=== PATIENT | female | born 1960 | race Caucasian/White ===

== ENCOUNTER 2018-05-14 11:00 | Inpatient (IN) ==
[2018-05-14] MEDS ORDERED: Naloxone 0.4 MG/ML INJ IVP PRN ×2 (13:09→16:05)
[2018-05-14] MEDS ORDERED: OXYCODONE Oral CONC 10 MG/0.5 ML ORAL.SYG SL PRN (13:09)
[2018-05-14] MEDS ORDERED: 0.9 % Sodium Chloride 1,000 ML IVC SCH (13:15)
--- NOTE | 2018-05-14 13:16 | Internal Med History&Physical ---
Date of Encounter: 05/14/18 Time of Encounter: 13:13 Internal Medicine - H&P: HPI Chief complaint: back pain Admitted From: Hospital to Hospital Transfer Plans for Post Hospital Care: Home History of present illness: Ms. Marte is a 57 year old female with history of hypothyroidism and multiple urinary tract infections presented to the emergency department with complaint of back pain and pain on urination. As per patient for the past 2 days she developed pain while urinating and has experienced incomplete emptying resulting in urinary frequency. Her symptoms progressively worsened and on the day of admission she developed back pain so she decided to come to the emergency department for further evaluation. While at [place] emergency department UA was positive, CT abdomen and pelvis was performed which showed there is a 6 mm calculus near the distal right ureter just proximal to the UVJ with mild hydroureter. Urology was consulted and recommended her to be transferred to [facility] for possible stent placement. Currently the patient denies any fever, chills, nausea, vomiting, diarrhea. Has had no chest pain or shortness of breath. She is able to walk about a mile without having to stop for chest pain or shortness of breath. No previous heart disease. Pain is minimally relieved with pain medications that she received at [facility] and she is currently requesting pain medications. Past Med Surg Social Fam HX - Past Medical History Medical history: migraine, thyroid disease, other Additional medical history: Neuropathy Psychiatric history: no psych history - Past Surgical History Surgical History: , knee replacement (Bilateral), thyroidectomy, other (Gastric band placement and removal) Additional surgical history: gastric band placed and removed. bilat knee replac ed - Social History Smoking Status: Never smoker Smokeless Tobacco Status: No Alcohol use: none Drug use: none - Family History Mother Hx Family Genitourinary Disorders: Yes (Kidney stone) Internal Medicine - H&P: Meds Levothyroxine [Synthroid] 150 mcg PO DAILY 05/10/15 [History] Topiramate [Topiramate ER] 250 mg PO DAILY 05/10/15 [History] Armodafinil [Nuvigil] 250 mg PO DAILY 05/24/15 [History] Gabapentin [Neurontin] 600 mg PO BID 02/24/18 [History] OXcarbazepine [Oxcarbazepine] 300 mg PO BID #14 tablet 12/01/18 [Rx] Allergy/AdvReac Type Severity Reaction Status Date / Time Amoxicillin [From Augmentin] AdvReac Rash Verified 02/24/18 20:14 clavulanic acid AdvReac Rash Verified 02/24/18 20:14 [From Augmentin] All Systems PM: A 10-system review of systems was performed and is negative for pertinent findings except as documented above in the HPI. - Constitutional Vitals: Temp Pulse Resp BP Pulse Ox 97.7 F 70 20 147/85 98 05/14/18 13:11 05/14/18 13:11 05/14/18 13:11 05/14/18 13:11 05/14/18 13:11 Exam: General: Patient is alert, oriented, no acute distress, obese Head: atraumatic, normocephalic, Eye: normal appearance, PERRL, no scleral icterus, no conjunctival injection ENT: mucous membranes moist, normal external ear exam Neck: normal inspection, trachea midline, full ROM, no carotid bruits Chest: normal inspection, symmetric chest rise Respiratory: Good respiratory effort. Bilateral breath sounds are clear without wheezing, crackles, or rhonchi. Cardiovascular: Regular rate and rhythm. s1 and s2 No clicks, rubs, gallops, or murmors. Abdomen: Bowel sounds present normoactive x-4 quadrants. Abdomen is soft, nondistended. no Epigastric tenderness. No guarding or rebound. No organomegaly noted, obese, CVA tenderness on the right musculoskeletal: Spontaneously moving all extremities. no edema, no calf tenderness Skin: warm, dry, intact. Neuro: Alert and oriented x4. No focal deficit Psych: Patient's affect is normal Internal Med - H&P Results - EKG Data -: EKG Interpreted by Myself (Admission EKG is pending.) - Assessment and plan (1) Complicated urinary tract infection Current Visit: Yes Status: Acute Assessment and plan: complicated urinary tract infection, CT abdomen and pelvis with 6 mm calculus near the distal right ureter with mild hydronephrosis Urology was consulted at [facility] recommended her to be transferred to [facility] for further evaluation Nothing by mouth for possible OR Continuous ceftriaxone Normal saline at 100 mL per hour watch for overload Follow urine cultures We will follow urology recommendations (2) Nephrolithiasis Current Visit: Yes Status: Acute Assessment and plan: Urology was consulted Nothing by mouth for possible procedure We will follow urology recommendations Ct A/P IMPRESSION: 1. There is a 6 mm calculus near the distal right ureter just proximal to the UVJ with mild hydroureter. 2. Minimal pericolonic inflammatory changes are nonspecific; mild colitis not excluded. (3) Hydronephrosis Current Visit: Yes Status: Acute Assessment and plan: Mild right-sided hydronephrosis secondary to above Management as above Qualifiers: Hydronephrosis type: with ureteropelvic junction obstruction Qualified Code(s): Q62.11 - Congenital occlusion of ureteropelvic junction (4) Hypothyroidism Current Visit: Yes Status: Acute Assessment and plan: Continue home Synthroid TSH in the a.m. Qualifiers: Hypothyroidism type: acquired Qualified Code(s): E03.9 - Hypothyroidism, unspecified (5) Migraines Current Visit: Yes Status: Acute Assessment and plan: Continue with home medications if not contraindicated Qualifiers: Migraine type: unspecified Status migrainosus presence: without status migrainosus Qualified Code(s): G43.919 - Migraine, unspecified, intractable, without status migrainosus (6) Obesity Current Visit: Yes Status: Acute Assessment and plan: nutrition consult Qualifiers: Obesity type: due to excess calories Serious obesity comorbidity presence: without serious comorbidity Body mass index: BMI 45.0-49.9 Qualified Code(s): E66.01 - Morbid (severe) obesity due to excess calories; Z68.42 - Body mass index (BMI) 45.0-49.9, adult (7) LES (obstructive sleep apnea) Current Visit: Yes Status: Acute Assessment and plan: CPAP at nights (8) DVT prophylaxis Current Visit: Yes Status: Acute Assessment and plan: Heparin subcutaneous - Time Spent With Patient Total time spent is greater than 50% in coordination of care (as documented) at patient's floor/unit and/or counseling patient:
--- NOTE | 2018-05-14 13:17 | Urology - Consult Note ---
Date of Encounter: 05/14/18 Time of Encounter: 13:15 - Assessment and Plan (1) Nephrolithiasis Current Visit: Yes Status: Acute Assessment and plan: 57-year-old woman with a distal right ureteral stone. Plan: We discussed options today. Given her pain and nausea, she would like to have her stone treated. I recommend proceeding with a right ureteroscopic stone extraction using laser lithotripsy and a stent placement. She was informed of the risks of the procedure including but not limited to bleeding, infection, injury to other structures, need for further procedures, stent irritation, incomplete fragmentation, ureteral perforation, need for nephrostomy tube, need for open repair, risks unforeseen, and the risk of anesthesia. She is willing to proceed. She has been NPO. She received a dose of Ceftriaxone this morning. (2) Renal colic Current Visit: No Status: Acute Urology CN:HPI Consult date: 05/14/18 Reason for consult Urology: Other (Right ureteral stone) Requesting physician: Treasure Gandara History of present illness: 57-year-old woman presents with a three-day history of right flank pain. The pain became more severe today. It is sharp. It radiates from the right flank to the right groin. The pain has not improved. She came to the [place] emergency department. She was given some pain medication. A CT scan was obtained which showed a right 6 mm distal ureteral stone. She was transferred to [facility] for further care. She reports having a history of stones. She was previously treated for one about 3-4 years ago in [place]. She is having some nausea. She denies any emesis. She denies any fevers or chills. Past Med Surg Social Fam HX - Past Medical History Medical history: migraine, thyroid disease, other Additional medical history: Neuropathy Psychiatric history: no psych history - Past Surgical History Surgical History: , knee replacement (Bilateral), thyroidectomy, other (Gastric band placement and removal) Additional surgical history: gastric band placed and removed. 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 - Family History Mother Hx Family Genitourinary Disorders: Yes (Kidney stone) Medications and Allergies Levothyroxine [Synthroid] 150 mcg PO DAILY 05/10/15 [History] Topiramate [Topiramate ER] 250 mg PO DAILY 05/10/15 [History] Armodafinil [Nuvigil] 250 mg PO DAILY 05/24/15 [History] Gabapentin [Neurontin] 600 mg PO BID 02/24/18 [History] OXcarbazepine [Oxcarbazepine] 300 mg PO BID #14 tablet 02/24/18 [Rx] Allergy/AdvReac Type Severity Reaction Status Date / Time Amoxicillin [From Augmentin] AdvReac Rash Verified 02/24/18 20:14 clavulanic acid AdvReac Rash Verified 02/24/18 20:14 [From Augmentin] Review of Systems - Constitutional no chills, no fever(s) - EENT Nose, mouth and throat: no dizziness - Cardiovascular no chest pain - Respiratory no dyspnea - Gastrointestinal nausea, no vomiting - Genitourinary Genitourinary: flank pain, no hematuria - Musculoskeletal no back pain - Integumentary no erythema, no rash - Neurological no weakness - Psychiatric no suicidal ideation - Hematologic/Lymphatic no easy bleeding - Allergic/Immunologic no wheezing Exam Initial Vital Signs Temp Pulse Resp BP Pulse Ox 97.7 F 70 20 147/85 98 05/14/18 13:11 05/14/18 13:11 05/14/18 13:11 05/14/18 13:11 05/14/18 13:11 - General physical appearance Present: well developed, well nourished, no distress - Eyes Absent: icteric - ENT Present: normal nares - Neck Present: trachea midline - Respiratory Present: normal respiratory effort - Cardiovascular Cardiovascular exam IM: RRR - Abdomen Abdomen: Present: soft, tender (Right lower quadrant) - Integumentary Present: no rash - Neurologic Present: normal coordination - Musculoskeletal Present: normal gait Urology Results - Labs All other labs normal. - Imaging CT scan - abdomen: report reviewed, image reviewed CT scan - pelvis: report reviewed, image reviewed Consult Discharge Plan - Plan Referrals: Mansi Reagan, ENVIRONMENTAL SERVICES ASSOCIATE [Primary Care Provider] -
[2018-05-14] MEDS ORDERED: *HR* Propofol 200 MG/20 ML VIAL IVP ONE (13:23)
[2018-05-14] MEDS ORDERED: Dexamethasone 4 MG/ML VIAL ONE (13:23)
[2018-05-14] MEDS ORDERED: *HR* Midazolam HCl 2 MG/2 ML VIAL ONE (13:23)
[2018-05-14] MEDS ORDERED: Lidocaine -MPF 2% 2 ML VIAL ONE (13:23)
[2018-05-14] MEDS ORDERED: *HR* FentaNYL (PF) 100 MCG/2 ML VIAL ONE (13:23)
[2018-05-14] MEDS ORDERED: Ondansetron 4 MG/2 ML VIAL ONE (13:23)
--- NOTE | 2018-05-14 13:41 | Anesthesia Evaluation PreOp ---
Date of Encounter: 05/14/18 Time of Encounter: 13:49 - Past History Planned Operation: R USE Cardiac History: Denies any Significant Hx Pulmonary History: LES Dx (unsure of settings but is compliant) CORPORATE SCHEDULER History: Other (migraine) Other Medical History: Renal (nephrolithiasis), Thyroid (hypo), Other (obesity) Anesthesia History: Past Anesthesia (, knee replacement (Bilateral), thyroidectomy, Gastric band placement and removal), Problems (PONV) Alcohol Use: none Drug use: none Medications and Allergies Levothyroxine [Synthroid] 150 mcg PO DAILY 05/10/15 [History] Topiramate [Topiramate ER] 250 mg PO DAILY 05/10/15 [History] Armodafinil [Nuvigil] 250 mg PO DAILY 05/24/15 [History] Gabapentin [Neurontin] 600 mg PO BID 02/24/18 [History] OXcarbazepine [Oxcarbazepine] 300 mg PO BID #14 tablet 02/24/18 [Rx] Allergy/AdvReac Type Severity Reaction Status Date / Time Amoxicillin [From Augmentin] AdvReac Rash Verified 02/24/18 20:14 clavulanic acid AdvReac Rash Verified 02/24/18 20:14 [From Augmentin] - Meds/Allergy Pre-op Review Medications Reviewed: Yes Allergies Reviewed: Yes Beta Blockers on Current Med List: No Anesthesia Results - Labs Laboratory Tests 05/14/18 05/14/18 08:12 08:12 WBC 6.6 Hgb 13.8 Hct 42.7 Plt Count 257 Sodium 141 Potassium 4.2 Chloride 109 H Carbon Dioxide 23 BUN 15 Creatinine 0.76 Est GFR (Non-Af Amer) > 60 - Imaging EKG: report reviewed Anesthesia Exam Vital Signs/O2 Sat/Glucose, Most Recent Temp Pulse Resp BP Pulse Ox 97.7 F 70 20 147/85 98 05/14/18 13:11 05/14/18 13:11 05/14/18 13:11 05/14/18 13:11 05/14/18 13:11 Weight: 260 lbs NPO (# of Hours): > 8 hr - HEENT Pupil (Motor): Pupils equal Mallampati: III Teeth: Normal Oral Opening: Greater than 3 - CORPORATE SCHEDULER LOC: Oriented CORPORATE SCHEDULER Motor: Normal RUE, Normal LUE, Normal RLE, Normal LLE, Normal Face CORPORATE SCHEDULER Sensory: Normal: RUE, LUE, RLE, LLE, Face - Cardiac Rhythm: Regular Murmur: None - Pulmonary Breath Sounds: bilateral Clear Anesthesia Assess/Plan ASA Score: 3 Level of consciousness: Cooperative, Oriented Anesthetic Plan: General Monitoring Plan: Standard Monitors Recovery Plan: PACU
[2018-05-14] MEDS ORDERED: Ondansetron 4 MG/2 ML VIAL IVP ONE (13:51)
[2018-05-14] MEDS ORDERED: *HR* Promethazine 25 MG/ML VIAL IVP PRN (13:51)
[2018-05-14] MEDS ORDERED: *HR* OxyCODONE Immed Rel 5 MG TABLET PO PRN (13:51)
[2018-05-14] MEDS ORDERED: *HR* HYDROmorphone (PF) 1 MG/ML SYRINGE IVP PRN (13:51)
[2018-05-14] MEDS ORDERED: Scopolamine Patch 1.5 MG PATCH.TD72 ONE (13:55)
[2018-05-14] MEDS ORDERED: Propofol 500 MG/50 ML INFUS..BTL ONE (13:59)
[2018-05-14] MEDS ORDERED: *HR* Heparin 5,000 UNIT/ML VIAL SQ SCH (14:00)
[2018-05-14] MEDS ORDERED: *HR* Succinylcholine 200 MG/10 ML VIAL IVP ONE (14:22)
[2018-05-14 14:28] LABS: INR 1.1; Prothrombin Time 12.6 Seconds (9.4-12.1)
[2018-05-14 14:31] LABS: Activated Partial Thrombo Time 30.1 Seconds (26.0-36.0)
--- NOTE | 2018-05-14 14:43 | Operative Note ---
Date of procedure: 05/14/18 Pre-op diagnosis: Right ureteral stone Post-op diagnosis: same Procedure: Right ureteroscopic stone extraction, laser lithotripsy, basket stone extraction, and stent placement Implants: 4.8-Wallisian by 24 cm double-J stent Complications: None Anesthesia: GETA Surgeon: French Ford Was there an lab assistant present: No Estimated blood loss (cc): 1 Specimen: right ureteral stone Condition: stable Disposition: PACU Procedure in Detail: Indications: Sol is a 57-year-old female who presents with right flank pain. A CT scan showed a 5 mm distal right ureteral stone. She failed outpatient management and elected to have the stone removed. She elected to undergo a right ureteroscopy, laser lithotripsy, and stent placement. She was aware of the risks of the procedure including but not limited to bleeding, infection, injury to other structures, need for further procedures, need for stent, stent irritation, incomplete treatment, and the risk of anesthesia. She is willing to proceed. Procedure: After informed consent was obtained the patient was brought back to the operating room and placed in supine position. A time out was performed. General anesthesia was administered and an LMA was placed. She was then placed in the lithotomy position. She was prepped and draped in the usual sterile fashion. Cystoscopy was performed. The anterior urethra was normal. There was no evidence of bladder tumors. The ureteral orifices were in the normal orthotopic position. There was no duplication of the ureteral orifices. The zip wire was placed in the right ureteral orifice, and it was brought into the kidney under fluoroscopic guidance. I then advanced the semirigid ureteroscope into the ureter. The stone was fragmented using the 365 aneta fiber. The stone fragments were then basket extracted. A 4.8 Wallisian by 24cm JJ stent was then placed with good curl seen in the kidney and the bladder. The dangle string was left intact and tucked into the vagina for removal later. The bladder was drained. The patient was then awakened from general anesthesia and brought to recovery room in good condition. All sponge, needle, and instrument counts were correct
[2018-05-14] MEDS ORDERED: Ketorolac 15 MG/ML VIAL IVP ONE (16:28)
[2018-05-14] MEDS: *HR* Promethazine 25 MG/ML VIAL IVP PRN (17:04)
[2018-05-14] MEDS: 0.9 % Sodium Chloride 1,000 ML IVC SCH (17:13)
[2018-05-14] MEDS: OXYCODONE Oral CONC 10 MG/0.5 ML ORAL.SYG SL PRN (20:38)
[2018-05-14] MEDS: *HR* Heparin 5,000 UNIT/ML VIAL SQ SCH (21:39)
[2018-05-14] MEDS: Ondansetron 4 MG/2 ML VIAL IVP PRN (22:35)
[2018-05-15] MEDS: *HR* Promethazine 25 MG/ML VIAL IVP PRN (02:53)
[2018-05-15] MEDS: OXYCODONE Oral CONC 10 MG/0.5 ML ORAL.SYG SL PRN ×3 (02:53→20:06)
[2018-05-15] MEDS: 0.9 % Sodium Chloride 1,000 ML IVC SCH (04:54)
[2018-05-15] MEDS: *HR* Heparin 5,000 UNIT/ML VIAL SQ SCH ×3 (05:14→22:41)
[2018-05-15 06:43] LABS: Basophils % 0.3 %; Eosinophils % 0.1 %; Hematocrit 40.7 % (35.3-44.9); Hemoglobin 12.8 g/dL (11.5-15.4); Immature Granulocytes % 0.3 % (0-4); Lymphocytes # 1.5 K/mcL (0.6-4.6); Lymphocytes % 20.1 %; Mean Corpuscular HGB Conc 31.4 g/dL (31.6-35.5); Mean Corpuscular Hemoglobin 31.8 pg (28.0-33.3); Mean Platelet Volume 8.9 fL (9.4-12.4); Monocytes # 0.5 K/mcL (0.0-1.3); Monocytes % 6.8 %; Neutrophils # 5.5 K/mcL (1.6-8.9); Platelet Count 239 K/mcL (140-400); Red Blood Count 4.03 M/mcL (3.82-4.97); Red Cell Distribution Width 13.7 % (11.5-14.5); Segmented Neutrophils % 72.4 %
[2018-05-15 06:51] LABS: BUN/Creatinine Ratio 23 (6-26); Blood Urea Nitrogen 15 mg/dL (6-20); Calcium 8.8 mg/dL (8.6-10.3); Carbon Dioxide 24 mEq/L (23-29); Chloride 110 mEq/L (98-107); Glucose 130 mg/dL (70-105); Osmolality,Calculated 293 (280-300); Potassium 4.2 mEq/L (3.5-5.1); Sodium 140 mEq/L (136-145); eGFR For Non-African Americans > 60 (> 60)
--- NOTE | 2018-05-15 08:36 | Urology Progress Note ---
Addendum entered and electronically signed by French Ford MD 05/15/18 09:26: Patient seen and examined with the PA. She is still having some discomfort after surgery. It is likely related to the stent. I would like her to keep the stent in place until 05/17/2018. Okay to discharge home today if pain control is improved. Appreciate IM support. Original Note: Date of Encounter: 05/15/18 Time of Encounter: 08:00 - Assessment and Plan (1) Nephrolithiasis Current Visit: Yes Status: Acute Assessment and plan: Patient is a 57-year-old female who presents one day status post right ureteroscopic stone extraction, laser lithotripsy, basket stone extraction, and stent placement. Vital signs are currently stable and afebrile. White blood cell count, hemoglobin, and renal function are stable and reassuring. Patient is experiencing some pain control issues. I explained postoperative discharge goals for patient include tolerating normal diet without nausea or vomiting, ind icating without assistance, and pain being well controlled with oral pain medication. Encouraged patient to ambulate and sit up in the chair and discussed postoperative expectations with indwelling ureteral stent. (2) Renal colic Current Visit: Yes Status: Acute Progress Note Subjective: no new complaints Narrative: Postoperative day #1. Patient seen and examined sitting upright in bed in no apparent distress. Patient is complaining of moderate flank pain and nausea. Patient is tolerating normal diet without emesis. Patient is voiding without difficulty. Patient is experiencing some pain control issues and does not wish to ambulate. Objective Initial Vital Signs Temp Pulse Resp BP Pulse Ox 97.7 F 70 20 147/85 98 05/14/18 13:11 05/14/18 13:11 05/14/18 13:11 05/14/18 13:11 05/14/18 13:11 - General physical appearance Present: no distress, moderate pain, obese - Respiratory Present: normal expansion, normal respiratory effort - Abdomen Present: soft, tender (right CVAT and RLQ discomfort) - Integumentary Present: no rash, no abnormal pigmentation - Musculoskeletal Present: normal posture - Psychiatric Present: oriented to time, oriented to person, oriented to place, speech is normal, memory intact - Labs 05/15/18 05:56 05/15/18 05:56 Diabetes panel 05/15/18 Range/Units 05:56 Sodium 140 (136-145) mEq/L Potassium 4.2 (3.5-5.1) mEq/L Chloride 110 H (98-107) mEq/L Carbon Dioxide 24 (23-29) mEq/L BUN 15 (6-20) mg/dL Creatinine 0.64 (0.60-1.20) mg/dL Glucose 130 H (70-105) mg/dL Calcium 8.8 (8.6-10.3) mg/dL Calcium panel 05/15/18 Range/Units 05:56 Calcium 8.8 (8.6-10.3) mg/dL Pituitary panel 05/15/18 Range/Units 05:56 Sodium 140 (136-145) mEq/L Potassium 4.2 (3.5-5.1) mEq/L Chloride 110 H (98-107) mEq/L Carbon Dioxide 24 (23-29) mEq/L BUN 15 (6-20) mg/dL Creatinine 0.64 (0.60-1.20) mg/dL Glucose 130 H (70-105) mg/dL Calcium 8.8 (8.6-10.3) mg/dL Adrenal panel 05/15/18 Range/Units 05:56 Sodium 140 (136-145) mEq/L Potassium 4.2 (3.5-5.1) mEq/L Chloride 110 H (98-107) mEq/L Carbon Dioxide 24 (23-29) mEq/L BUN 15 (6-20) mg/dL Creatinine 0.64 (0.60-1.20) mg/dL Glucose 130 H (70-105) mg/dL Calcium 8.8 (8.6-10.3) mg/dL Consult Discharge Plan - Plan Referrals: Mansi Reagan, TRANSIT MIX OPERATOR [Primary Care Provider] -
[2018-05-15] MEDS: Ondansetron 4 MG/2 ML VIAL IVP PRN (09:12)
[2018-05-15] MEDS ORDERED: cefTRIAXone 2,000 MG in Water for inj. (sterile) 20 ML 20 ML IVP SCH (11:00)
[2018-05-15] MEDS: cefTRIAXone 2,000 MG in Water for inj. (sterile) 20 ML 20 ML IVP SCH (12:27)
[2018-05-16] MEDS: OXYCODONE Oral CONC 10 MG/0.5 ML ORAL.SYG SL PRN ×4 (00:23→17:04)
[2018-05-16] MEDS: Acetaminophen 325 MG TABLET PO PRN ×2 (04:01→16:41)
--- NOTE | 2018-05-16 04:40 | Internal Med Progress Note ---
Hospitalist Progress Note - Encounter Date of Encounter: 05/15/18 Time of Encounter: 19:00 - Subjective Interval History: SUBJECTIVE: The patient complains of lower abdominal pain. She does have some nausea but not vomiting. She had a right ureteroscopic stone extraction with laser lithotripsy, basket stone extraction and stent placement done yesterday. Denies chest pain and difficulty breathing. She makes good amounts of urine. OBJECTIVE: Skin: Free of rash and discoloration. ENMT: Oral/pharyngeal mucosa is normal in appearance. Eyes: Sclera is white. There is no discharge from eyes. Respiratory: Normal breath sounds; no crackles or wheezes. CV: Heart is regular; no gallop or murmur. GI: There is mild tenderness on palpation of the suprapubic area. There is no palpable mass or visceromegaly. Neuro: There is no focal deficits. ADDITIONAL DATA: Blood work from yesterday showed normal CBC and BMP. ASSESSMENT AND PLAN: UTI. Triggered by a stone in the right ureter. Right-sided mild hyd ronephrosis. Nephrolithiasis. xxx. The stone has been removed by urology. She is on IV Rocephin. She gets when necessary IV Zofran. Hypothyroidism. Clinically under control. To continue Synthroid. Obstructive sleep apnea. To continue CPAP treatments. She is on Nuvigil. Migraine headaches. She gets Topamax and oxcarbazepine for prevention. DISPOSITION: We need to wait for urine culture results before discharging this patient. We will start physical therapy for ambulation. - Exam Vitals: Temp Pulse Resp BP Pulse Ox 98.1 F 64 20 127/77 93 05/16/18 04:08 05/16/18 04:08 05/16/18 04:08 05/16/18 04:08 05/16/18 04:08 Exam: xx - Assessment and Plan (1) Complicated urinary tract infection Current Visit: Yes Status: Acute (2) Hydronephrosis Current Visit: Yes Status: Acute (3) Nephrolithiasis Current Visit: Yes Status: Chronic (4) Hypothyroidism Current Visit: Yes Status: Acute (5) LES (obstructive sleep apnea) Current Visit: Yes Status: Acute (6) Migraines Current Visit: Yes Status: Acute (7) Obesity Current Visit: Yes Status: Acute - Time Spent with Patient Total time spent is greater than 50% in coordination of care (as documented) at patient's floor/unit and/or counseling patient: Internal Medicine: Result - Labs CBC & Chem 7: 05/15/18 05:56 05/15/18 05:56 Labs: Short CBC 05/15/18 Range/Units 05:56 WBC 7.6 (4.3-11.1) K/mcL Hgb 12.8 (11.5-15.4) g/dL Hct 40.7 (35.3-44.9) % Plt Count 239 (140-400) K/mcL Neutrophils # 5.5 (1.6-8.9) K/mcL BMP 05/15/18 05:56 Sodium 140 Potassium 4.2 Chloride 110 H Carbon Dioxide 24 BUN 15 Creatinine 0.64 Glucose 130 H Calcium 8.8 - ABG Interpretation ABG results: PT/INR, D-dimer PT 12.6 Seconds (9.4-12.1) H 05/14/18 13:45 Consult Discharge Plan - Plan Referrals: Mansi Reagan, FREELANCE TRANSLATOR [Primary Care Provider] - (2) Hydronephrosis Qualifiers: Hydronephrosis type: with ureteral calculous obstruction Qualified Code(s): N13.2 - Hydronephrosis with renal and ureteral calculous obstruction (4) Hypothyroidism Qualifiers: Hypothyroidism type: acquired Qualified Code(s): E03.9 - Hypothyroidism, unspecified (6) Migraines Qualifiers: Migraine type: unspecified Status migrainosus presence: without status migrainosus Qualified Code(s): G43.919 - Migraine, unspecified, intractable, without status migrainosus (7) Obesity Qualifiers: Obesity type: due to excess calories Serious obesity comorbidity presence: without serious comorbidity Body mass index: BMI 45.0-49.9 Qualified Code(s): E66.01 - Morbid (severe) obesity due to excess calories; Z68.42 - Body mass index (BMI) 45.0-49.9, adult
[2018-05-16] MEDS: *HR* Heparin 5,000 UNIT/ML VIAL SQ SCH ×3 (05:26→20:52)
[2018-05-16 06:25] LABS: Basophils % 0.5 %; Eosinophils # 0.1 K/mcL (0.0-0.6); Eosinophils % 2.1 %; Hematocrit 38.2 % (35.3-44.9); Hemoglobin 12.3 g/dL (11.5-15.4); Immature Granulocytes % 0.2 % (0-4); Lymphocytes # 1.9 K/mcL (0.6-4.6); Lymphocytes % 28.8 %; Mean Corpuscular HGB Conc 32.2 g/dL (31.6-35.5); Mean Corpuscular Hemoglobin 31.7 pg (28.0-33.3); Mean Corpuscular Volume 98.5 fL (83.0-100.0); Mean Platelet Volume 9.6 fL (9.4-12.4); Monocytes # 0.5 K/mcL (0.0-1.3); Monocytes % 8.3 %; Neutrophils # 3.9 K/mcL (1.6-8.9); Platelet Count 182 K/mcL (140-400); Red Blood Count 3.88 M/mcL (3.82-4.97); Red Cell Distribution Width 13.5 % (11.5-14.5); Segmented Neutrophils % 60.1 %
[2018-05-16 06:40] LABS: BUN/Creatinine Ratio 22 (6-26); Blood Urea Nitrogen 14 mg/dL (6-20); Calcium 9.1 mg/dL (8.6-10.3); Carbon Dioxide 24 mEq/L (23-29); Chloride 109 mEq/L (98-107); Glucose 116 mg/dL (70-105); Osmolality,Calculated 293 (280-300); Potassium 4.1 mEq/L (3.5-5.1); Sodium 141 mEq/L (136-145); eGFR For Non-African Americans > 60 (> 60)
--- NOTE | 2018-05-16 08:35 | Urology Progress Note ---
Addendum entered and electronically signed by French Ford MD 05/16/18 16:10: The patient was seen and examined with the physician's assistant front desk manager. I agree with the assessment and plan. The patient is postoperative day #2 status post right ureteroscopic stone extraction. Urine culture is still pending. She is still having some lower abdominal pain and nausea. This may be related to the stent. We will keep the stent indwelling today. Anticipate removal of it tomorrow morning. Urology will follow along. Original Note: Date of Encounter: 05/16/18 Time of Encounter: 08:05 - Assessment and Plan (1) Nephrolithiasis Current Visit: Yes Status: Chronic Assessment and plan: Patient is a 57-year-old female who presents 2 days status post right ureteroscopic stone extraction, laser lithotripsy, basket stone extraction, and stent placement. Vital signs are currently stable and afebrile. White blood cell count and renal function remain normal and reassuring. Patient is expe riencing continued pain control issues and is reluctant to increase ambulation. We will consider removal of ureteral stent earlier than anticipated due to patient's discomfort. (2) Renal colic Current Visit: Yes Status: Acute Progress Note Subjective: no new complaints, feels better Narrative: POD #2. Patient seen and examined sitting upright in bed eating breakfast in no apparent distress. Patient reports continued right flank pain that is worse with movement and worse with urination. Patient does not feel her pain will be well-controlled at home. Patient states she is voiding without difficulty, and she denies any fever, chills, chest pain, dyspnea. Objective Initial Vital Signs Temp Pulse Resp BP Pulse Ox 97.7 F 70 20 147/85 98 05/14/18 13:11 05/14/18 13:11 05/14/18 13:11 05/14/18 13:11 05/14/18 13:11 - General physical appearance Present: no distress, moderate pain, obese - Respiratory Present: normal expansion, normal respiratory effort - Abdomen Present: soft, tender (RLQ) - Integumentary Present: no rash, no abnormal pigmentation - Musculoskeletal Present: normal posture - Psychiatric Present: oriented to time, oriented to person, oriented to place, speech is normal, memory intact - Labs 05/16/18 06:07 05/16/18 06:07 Diabetes panel 05/16/18 Range/Units 06:07 Sodium 141 (136-145) mEq/L Potassium 4.1 (3.5-5.1) mEq/L Chloride 109 H (98-107) mEq/L Carbon Dioxide 24 (23-29) mEq/L BUN 14 (6-20) mg/dL Creatinine 0.63 (0.60-1.20) mg/dL Glucose 116 H (70-105) mg/dL Calcium 9.1 (8.6-10.3) mg/dL Calcium panel 05/16/18 Range/Units 06:07 Calcium 9.1 (8.6-10.3) mg/dL Pituitary panel 05/16/18 Range/Units 06:07 Sodium 141 (136-145) mEq/L Potassium 4.1 (3.5-5.1) mEq/L Chloride 109 H (98-107) mEq/L Carbon Dioxide 24 (23-29) mEq/L BUN 14 (6-20) mg/dL Creatinine 0.63 (0.60-1.20) mg/dL Glucose 116 H (70-105) mg/dL Calcium 9.1 (8.6-10.3) mg/dL Adrenal panel 05/16/18 Range/Units 06:07 Sodium 141 (136-145) mEq/L Potassium 4.1 (3.5-5.1) mEq/L Chloride 109 H (98-107) mEq/L Carbon Dioxide 24 (23-29) mEq/L BUN 14 (6-20) mg/dL Creatinine 0.63 (0.60-1.20) mg/dL Glucose 116 H (70-105) mg/dL Calcium 9.1 (8.6-10.3) mg/dL Consult Discharge Plan - Plan Referrals: Mansi Reagan, BOX BUILDER [Primary Care Provider] -
[2018-05-16 09:22] LABS: Bilirubin,Urine Negative (Negative); Blood,Urine Large (Negative); Clarity,Urine Cloudy (Clear); Color,Urine Dark Yellow (Yellow); Glucose,Urine (UA) Normal (Normal); Ketones,Urine Negative (Negative); Leukocyte Esterase,Urine Small (Negative); Nitrite,Urine Negative (Negative); Protein,Urine 100 mg/dL (Neg-Trace); Urobilinogen,Urine Normal (Normal)
[2018-05-16 09:24] LABS: Bacteria,Urine None Seen per hpf (None-Few); Hyaline Casts,Urine None Seen per lpf (None-Few); RBC,Urine TNTC per hpf (0-3); Squamous Epithelial Cell,Urine Many per lpf (None-Few); WBC,Urine 15-30 per hpf (0-3)
[2018-05-16] MEDS: cefTRIAXone 2,000 MG in Water for inj. (sterile) 20 ML 20 ML IVP SCH (10:32)
[2018-05-16] MEDS: Gabapentin 300 MG CAPSULE PO SCH ×2 (10:33→20:52)
[2018-05-16] MEDS: Multivit/Ca/Min/Fe/FA 1 TAB TABLET PO SCH (10:33)
[2018-05-16] MEDS: Topiramate 25 MG TABLET PO SCH (10:33)
[2018-05-16] MEDS: OXcarbazepine 150 MG TABLET PO SCH ×2 (10:33→20:51)
--- NOTE | 2018-05-16 13:27 | Internal Med Progress Note ---
Hospitalist Progress Note - Encounter Date of Encounter: 05/16/18 Time of Encounter: 11:00 - Subjective Interval History: Patient continues to have severe right flank and suprapubic pain related to ureteral stent. No fever or chills reported overnight. Tolerating diet well. - Exam Vitals: Temp Pulse Resp BP Pulse Ox 98.0 F 63 19 119/73 94 05/16/18 11:37 05/16/18 11:37 05/16/18 11:37 05/16/18 11:37 05/16/18 11:37 Exam: General: Patient is alert, moderate distress, oriented x 3 ENT: Mucous membranes moist Respiratory: Good respiratory effort. Normal breath sounds. No wheezing or crackles. Cardiovascular: Regular rate and rhythm. s1 and s2 normal No clicks, rubs, gallops, or murmurs. No pedal edema Abdomen: Abdomen is soft, nontender. Right-sided CVA tenderness Bowel sounds are present Musculoskeletal: Spontaneously moving all extremities Skin: warm, dry, intact. Neuro: Alert oriented x 3 normal cranial nerves, no focal deficits - Assessment and Plan (1) Complicated urinary tract infection Current Visit: Yes Status: Acute Assessment and Plan: Due to ureteral stone. Continue IV antibiotics. Pain medications. Supportive care. Urology following. Moderate risk for complications (2) Nephrolithiasis Current Visit: Yes Status: Chronic Assessment and Plan: Status post right-sided ureteroscopic stone extraction, laser lithotripsy, stent placement. Continues to have significant pain present from the procedure. Plan was to remove stent tomorrow. Urology following. Continue antibiotics. (3) Hydronephrosis Current Visit: Yes Status: Acute Assessment and Plan: Renal function remained stable. Patient having good urine output. (4) Hypothyroidism Current Visit: Yes Status: Chronic Assessment and Plan: Continue levothyroxin (5) Migraines Current Visit: Yes Status: Chronic Assessment and Plan: continue Topamax (6) Obesity Current Visit: Yes Status: Chronic (7) LES (obstructive sleep apnea) Current Visit: Yes Status: Chronic Assessment and Plan: Continue CPAP use. Continue Nuvigil. DVT Prophylaxis: Continue subcutaneous heparin - Time Spent with Patient Total time spent is greater than 50% in coordination of care (as documented) at patient's floor/unit and/or counseling patient: Internal Medicine: Result - Labs CBC & Chem 7: 05/16/18 06:07 05/16/18 06:07 Labs: Short CBC 05/16/18 Range/Units 06:07 WBC 6.5 (4.3-11.1) K/mcL Hgb 12.3 (11.5-15.4) g/dL Hct 38.2 (35.3-44.9) % Plt Count 182 (140-400) K/mcL Neutrophils # 3.9 (1.6-8.9) K/mcL BMP 05/16/18 06:07 Sodium 141 Potassium 4.1 Chloride 109 H Carbon Dioxide 24 BUN 14 Creatinine 0.63 Glucose 116 H Calcium 9.1 Urine 05/16/18 Range/Units 08:54 Urine Color Dark Yellow (Yellow) Urine Clarity Cloudy A (Clear) Urine pH 6.0 (5.0-8.0) pH Units Ur Specific [place] 1.020 (1.010-1.025) Urine Protein 100 H (Neg-Trace) mg/dL Urine Glucose (UA) Normal (Normal) mg/dL - ABG Interpretation ABG results: PT/INR, D-dimer PT 12.6 Seconds (9.4-12.1) H 05/14/18 13:45 Consult Discharge Plan - Plan Referrals: Mansi Reagan, MANAGER MSW [Primary Care Provider] - (3) Hydronephrosis Qualifiers: Hydronephrosis type: with ureteral calculous obstruction Qualified Code(s): N13.2 - Hydronephrosis with renal and ureteral calculous obstruction (4) Hypothyroidism Qualifiers: Hypothyroidism type: acquired Qualified Code(s): E03.9 - Hypothyroidism, unspecified (5) Migraines Qualifiers: Migraine type: unspecified Status migrainosus presence: without status migrainosus Qualified Code(s): G43.919 - Migraine, unspecified, intractable, without status migrainosus (6) Obesity Qualifiers: Obesity type: due to excess calories Serious obesity comorbidity presence: without serious comorbidity Body mass index: BMI 45.0-49.9 Qualified Code(s): E66.01 - Morbid (severe) obesity due to excess calories; Z68.42 - Body mass index (BMI) 45.0-49.9, adult
[2018-05-16] MEDS: Armodafinil [Nuvigil] 250 MG PO SCH (14:00)
[2018-05-17] MEDS: OXYCODONE Oral CONC 10 MG/0.5 ML ORAL.SYG SL PRN ×2 (05:04→09:59)
[2018-05-17] MEDS: *HR* Heparin 5,000 UNIT/ML VIAL SQ SCH (06:13)
[2018-05-17] MEDS: Acetaminophen 325 MG TABLET PO PRN (06:13)
--- NOTE | 2018-05-17 07:28 | Urology Progress Note ---
Date of Encounter: 05/17/18 Time of Encounter: 07:27 - Assessment and Plan (1) Nephrolithiasis Current Visit: Yes Status: Chronic Assessment and plan: POD #3 s/p right URS, laser and stent. 1. Await urine culture results. 2. Stent removed today. 3. Disposition per primary team. (2) Renal colic Current Visit: Yes Status: Acute Progress Note Narrative: POD #3 s/p right URS, laser and stent. Nausea somewhat improved yesterday. Urine culture is pending. Pain seems controlled. Objective Initial Vital Signs Temp Pulse Resp BP Pulse Ox 97.7 F 70 20 147/85 98 05/14/18 13:11 05/14/18 13:11 05/14/18 13:11 05/14/18 13:11 05/14/18 13:11 - General physical appearance Present: well developed, well nourished, no distress - Respiratory Present: normal respiratory effort - Abdomen Present: soft - Genitourinary Present: normal external genitalia (stent removed today.) - Labs 05/16/18 06:07 05/16/18 06:07 Consult Discharge Plan - Plan Referrals: Mansi Reagan, POSTAL SERVICE CLERK [Primary Care Provider] -
[2018-05-17] MEDS: Multivit/Ca/Min/Fe/FA 1 TAB TABLET PO SCH (09:57)
[2018-05-17] MEDS: Gabapentin 300 MG CAPSULE PO SCH (09:57)
[2018-05-17] MEDS: Topiramate 25 MG TABLET PO SCH (09:57)
[2018-05-17] MEDS: OXcarbazepine 150 MG TABLET PO SCH (09:57)
[2018-05-17] MEDS: Armodafinil [Nuvigil] 250 MG PO SCH (09:58)
--- NOTE | 2018-05-17 11:02 | Discharge Summary ---
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 She was started on treatment for possible urinary tract infection associated with this and was also evaluated by urology who performed a right ureteroscopic stone extraction, laser lithotripsy and stent placement. Patient continued to have severe pain and spasms related to the stent. She received IV antibiotics throughout her stay here. Her urine culture is growing yeast species. Patient's ureteral stent was removed today. She is feeling somewhat better since then. She has been cleared for discharge by urology and will follow up with them in clinic. Orders not resulted at time of discharge: Pending orders 05/14/18 14:35 Calculi (stone) Analysis Routine Date of Encounter: 05/17/18 Time of Encounter: 10:55 - Discharge Diagnosis (1) Complicated urinary tract infection Priority: Primary Status: Acute (2) Nephrolithiasis Priority: Secondary Status: Chronic (3) Hydronephrosis Priority: Secondary Status: Acute Qualifiers: Hydronephrosis type: with ureteral calculous obstruction Qualified Code(s): N13.2 - Hydronephrosis with renal and ureteral calculous obstruction (4) Hypothyroidism Priority: Secondary Status: Chronic Qualifiers: Hypothyroidism type: acquired Qualified Code(s): E03.9 - Hypothyroidism, unspecified (5) Migraines Priority: Secondary Status: Chronic Qualifiers: Migraine type: unspecified Status migrainosus presence: without status migrainosus Qualified Code(s): G43.919 - Migraine, unspecified, intractable, without status migrainosus (6) Obesity Priority: Secondary Status: Chronic Qualifiers: Obesity type: due to excess calories Serious obesity comorbidity presence: without serious comorbidity Body mass index: BMI 45.0-49.9 Qualified Code(s): E66.01 - Morbid (severe) obesity due to excess calories; Z68.42 - Body mass index (BMI) 45.0-49.9, adult (7) LES (obstructive sleep apnea) Priority: Secondary Status: Chronic Hospital course: Ms. 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 She was started on treatment for possible urinary tract infection associated with this and was also evaluated by urology who performed a right ureteroscopic stone extraction, laser lithotripsy and stent placement. Patient continued to have severe pain and spasms related to the stent. She received IV antibiotics throughout her stay here. Her urine culture is growing yeast species. Patient's ureteral stent was removed today. She is feeling somewhat better since then. She has been cleared for discharge by urology and will follow up with them in clinic. Discharge discussed with: patient, nurse, telesales consultant - Time Spent with Patient Total time spent providing and/or coordinating discharge services: Greater than 30 minutes (35 min) - Discharge Medications Prescriptions: New OxyCODONE/APAP 5/325 [Percocet 5/325 MG] 1 each PO Q6HR PRN 5 Days #14 tablet PRN Reason: Pain Phenazopyridine [Pyridium] 200 mg PO TID #30 tablet Docusate [Colace] 100 mg PO BID #30 capsule Fluconazole [Diflucan] 200 mg PO DAILY #7 tab Continue Topiramate 150 mg PO DAILY OXcarbazepine [Oxcarbazepine] 600 mg PO BID Gabapentin [Neurontin] 600 mg PO BID Multivitamin [One Daily Multivitamin] 1 tab PO DAILY Levothyroxine [Synthroid] 150 mcg PO QAM Armodafinil [Nuvigil] 250 mg PO DAILY Home Medications: Levothyroxine [Synthroid] 150 mcg PO QAM 05/10/15 [History] Armodafinil [Nuvigil] 250 mg PO DAILY 05/24/15 [History] Gabapentin [Neurontin] 600 mg PO BID 05/14/18 [History] Multivitamin [One Daily Multivitamin] 1 tab PO DAILY 05/14/18 [History] OXcarbazepine [Oxcarbazepine] 600 mg PO BID 05/14/18 [History] Topiramate 150 mg PO DAILY 05/14/18 [History] Docusate [Colace] 100 mg PO BID #30 capsule 05/17/18 [Rx] Fluconazole [Diflucan] 200 mg PO DAILY #7 tab 05/17/18 [Rx] OxyCODONE/APAP 5/325 [Percocet 5/325 MG] 1 each PO Q6HR PRN 5 Days #14 tablet 05/17/18 [Rx] Phenazopyridine [Pyridium] 200 mg PO TID #30 tablet 05/17/18 [Rx] Allergies/Adverse Reactions: Allergy/AdvReac Type Severity Reaction Status Date / Time Amoxicillin [From Augmentin] AdvReac Hives Verified 05/14/18 20:15 clavulanic acid AdvReac Hives Verified 05/14/18 20:15 [From Augmentin] Date of admission: 05/14/18 14:57 Primary care physician: Mansi Reagan CNP Consults: 05/14/18 13:11 Consult to Urology [CONS] Routine Consulting Provider: Urology Ora Reason for Consult: complicated UTi Call Completed: Yes Discharging clinician: Chidi Moncada Anticipated date of discharge: 05/17/18 - Constitutional Vitals: Temp Pulse Resp BP Pulse Ox 97.9 F 63 16 148/88 95 05/17/18 07:36 05/17/18 07:36 05/17/18 07:36 05/17/18 07:36 05/17/18 07:36 General appearance: Present: cooperative, mild distress, A&O X 3, morbidly obese, answers questions appropriately Exam: . - Respiratory Respiratory exam: Present: CTAB. Absent: accessory muscle use, rales, rhonchi, wheezes - Cardiovascular Cardiovascular exam: Present: RRR, +S1, +S2. Absent: diastolic murmur, gallop, rubs, systolic murmur - GI/Abdominal GI/Abdominal exam: Present: normal bowel sounds, soft, no peritoneal signs. Absent: distended, tenderness - Extremities Exam Extremities exam: Present: warm, radial pulses palpable and symmetrical. Absent: calf tenderness, cyanotic, pedal edema - Neurological Exam Neurological exam: Present: oriented X3, no focal deficits. Absent: facial droop, speech deficit - Skin Skin exam: Present: dry, intact - Patient Status Disposition: Home, Self-Care Condition: Good Functional capacity at discharge: independent ambulation Overall status at discharge: patient is progressing back to baseline - Discharge Instructions Instructions: Urinary Tract Infection in Women (DC) Follow Up With: Mansi Reagan CNP [Primary Care Provider] - (in 1-2 weeks) French Ford MD [Partnered Physician] - (in 1-2 weeks for F/u) - Diet and Activity Activity: increase activity as tolerated Diet: advance to your usual diet
[2018-05-17] MEDS ORDERED: Fluconazole 40 MG/ML UDC PO SCH (11:15)
[2018-05-17 11:18] VITALS: BP 117/67
[2018-05-17] MEDS: cefTRIAXone 2,000 MG in Water for inj. (sterile) 20 ML 20 ML IVP SCH (11:50)
[2018-05-17] MEDS ORDERED: CefTRIAXone 1,000 MG VIAL IM ONE (12:18)
== END 2018-05-17 13:33 | disposition home or self-care (01) | DRG 660 ==
LOC: 2SOUTHHOLD → SUATTDRO 14:57 → 2ANU 05-16 01:43
PROVIDERS: ADMIT Internal Medicine; ATTEND Internal Medicine

== ENCOUNTER 2018-12-07 10:45 | Inpatient (IN) ==
[2018-12-07] MEDS ORDERED: *HR* HYDROmorphone (PF) 1 MG/ML SYRINGE IVP ONE (10:56)
--- NOTE | 2018-12-07 11:22 | Emergency Department Note ---
Disposition Clinical Impression: Herniation of left side of L4-L5 intervertebral disc Disposition: Admitted As Inpatient Condition: Fair Forms: ED Satisfaction Letter Time of Disposition: 11:42 Back Pain HPI - General Chief Complaint: ED Back Pain/Injury Stated Complaint: Back pain Time Seen by Provider: 12/07/18 10:51 Source: patient, EMS Mode of arrival: EMS Limitations: no limitations Nursing Notes Reviewed: Yes Vital Signs Reviewed: Yes - History of Present Illness HPI Narrative: 58-year-old female presents to the emergency department from Dr. Licea's office for disc protuberant trusion. Says he wants the patient admitted and get pain control and he will take to the OR on Monday. Said that she has very good protrusion causing pain and they are unable to control the pain at home. She has no loss of bladder or bowel movements no numbness going down the legs just pain on the lower back that is radiating down the legs. Says the pain is 10 out of 10 difficult to move. Sharp stabbing pain otherwise no other complaints. There is no fevers or chills. His been no trauma or recent surgery to the area - Related Data Home Medications Medication Instructions Recorded Confirmed Levothyroxine [Synthroid] 150 mcg PO QAM 05/10/15 12/04/18 Armodafinil [Nuvigil] 250 mg PO DAILY 05/24/15 12/04/18 Multivitamin [One Daily 1 tab PO DAILY 05/14/18 12/04/18 Multivitamin] Topiramate 100 mg PO DAILY 05/14/18 12/04/18 Aspirin [Lo-Dose Aspirin EC] 81 mg PO DAILY 11/30/18 12/04/18 Naratriptan HCl [Amerge] 2.5 mg PO PRN PRN 12/01/18 12/04/18 Previous Rx's Medication Instructions Recorded Acetaminophen [Tylenol] 1,000 mg PO Q8H tablet 12/04/18 Enoxaparin [Lovenox] 40 mg SQ 0600 syringe 12/04/18 FentaNYL PATCH [Duragesic] 50 mcg TD Q72H 12 Days patch.td72 12/04/18 Gabapentin [Neurontin] 300 mg PO BID capsule 12/04/18 Lidocaine Patch [Lidoderm 5% patch] 1 each TP DAILY adh..patch 12/04/18 Methocarbamol [Robaxin] 500 mg PO Q8HR tablet 12/04/18 Methyl Salicylate/Menthol [Bengay] 1 appl TP DAILY tube 12/04/18 Naproxen [Naprosyn] 500 mg PO BIDWM tablet 12/04/18 OXcarbazepine [Trileptal] 600 mg PO BID tablet 12/04/18 Ondansetron ODT [Zofran ODT] 4 mg SL Q4HR PRN tab.rapdis 12/04/18 OxyCODONE/APAP 10/325 [Percocet 1 each PO Q4HR PRN 12 Days tablet 12/04/18 10/325 MG] metFORMIN [Glucophage] 500 mg PO 0800 tablet 12/04/18 Allergies Allergy/AdvReac Type Severity Reaction Status Date / Time Amoxicillin [From Augmentin] AdvReac Hives Verified 05/30/18 21:45 clavulanic acid AdvReac Hives Verified 05/30/18 21:45 [From Augmentin] morphine AdvReac Confusion Verified 05/30/18 21:40 All systems ED: reviewed and negative except as stated. Review of Systems: As Per HPI Past Medical History - Past Medical History Attestation: Yes The following information was validated with the patient. Source: patient Medical history: Reports: diabetes, kidney stones, migraine, thyroid disease, other Surgical history: Reports: , knee replacement, thyroidectomy, other Psychiatric history: Reports: no psych history ELEVATOR ERECTOR HELPER history: Reports: no ELEVATOR ERECTOR HELPER history - Social History Smoking Status: Never smoker Smokeless Tobacco Status: No Alcohol use: Reports: none Drug use: Reports: none Physical Exam - General Limitations: no limitations General appearance: alert, in distress - Head Head exam: atraumatic, normocephalic, normal inspection - Eye Eye exam: Present: normal appearance, PERRL, EOMI - ENT ENT exam: normal exam, normal oropharynx, mucous membranes moist - Neck Neck exam: Present: normal inspection, full ROM, trachea midline - Chest Chest inspection: Present: normal inspection, symmetric chest wall rise - Respiratory Respiratory exam: Present: normal lung sounds bilaterally - Cardiovascular Cardiovascular exam: Present: regular rate, normal rhythm, normal heart sounds - Abdominal Exam Abdominal exam: Present: soft, Non-Tender, normal bowel sounds. Absent: tenderness, distention, guarding, rebound, rigidity - Extremities Exam Extremities exam: Present: normal inspection, full ROM. Absent: tenderness, pedal edema - Back Exam Back exam: Present: normal inspection, full ROM, tenderness (While palpating the lumbar region 1 through 5) - Neurological Exam Neurological exam: Present: alert, oriented X3 - Skin Skin exam: Present: warm, dry, intact, normal color Course Vital Signs Temperature 98.9 F 12/07/18 10:53 Pulse Rate 78 12/07/18 10:53 Respiratory Rate 22 12/07/18 10:53 Blood Pressure 146/73 12/07/18 10:53 O2 Sat by Pulse Oximetry 97 12/07/18 10:53 Temperature 98.9 F 12/07/18 10:53 Pulse Rate 78 12/07/18 10:53 Respiratory Rate 22 12/07/18 10:53 Blood Pressure 146/73 12/07/18 10:53 O2 Sat by Pulse Oximetry 97 12/07/18 10:53 Oxygen Delivery Oxygen Delivery Room Air Back Pain/Injury - MDM Narrative Medical decision making narrative: We will get basic labs including CBC BMP PT INR for surgery. We will also get chest x-ray and EKG to clear for surgery. We will give patient Dilaudid and Zofran for pain and nausea control. We will admit to the hospitalist. There will be a consultation to Dr. Licea for surgery. - Medical Records Medical records reviewed: Yes I reviewed the patient's medical records. - Lab Data Lab results reviewed: Yes I reviewed the patient's lab results. - Radiology Data Radiology results reviewed: Yes I reviewed the patient's radiology results. - EKG Data EKG attestation: Yes I reviewed and interpreted this EKG. EKG results narrative: EKG done at 1127 review by myself and the attending shows sinus rhythm at a rate of 72, AL 199, QRS 99, QTC 457. No acute ST changes no acute T-wave changes nor signs of ischemia no signs of hypertrophy, heart strain, heart block. No wpw/brugada/HOCM. No change based on old EKG done 05/30/18
[2018-12-07 11:32] LABS: Basophils % 0.4 %; Eosinophils # 0.2 K/mcL (0.0-0.6); Eosinophils % 3.9 %; Hematocrit 39.5 % (35.3-44.9); Hemoglobin 12.6 g/dL (11.5-15.4); Immature Granulocytes % 0.2 % (0-4); Lymphocytes # 1.6 K/mcL (0.6-4.6); Lymphocytes % 30.1 %; Mean Corpuscular HGB Conc 31.9 g/dL (31.6-35.5); Mean Corpuscular Hemoglobin 31.6 pg (28.0-33.3); Mean Platelet Volume 8.6 fL (9.4-12.4); Monocytes # 0.6 K/mcL (0.0-1.3); Monocytes % 10.8 %; Neutrophils # 2.9 K/mcL (1.6-8.9); Platelet Count 195 K/mcL (140-400); Red Blood Count 3.99 M/mcL (3.82-4.97); Red Cell Distribution Width 13.9 % (11.5-14.5); Segmented Neutrophils % 54.6 %; White Blood Count 5.4 K/mcL (4.3-11.1)
[2018-12-07 11:44] LABS: INR 1.1; Prothrombin Time 12.1 Seconds (9.4-12.1)
[2018-12-07 11:52] LABS: BUN/Creatinine Ratio 30 (6-26); Blood Urea Nitrogen 21 mg/dL (6-20); Calcium 8.7 mg/dL (8.6-10.3); Carbon Dioxide 25 mEq/L (23-29); Chloride 109 mEq/L (98-107); Glucose 121 mg/dL (70-105); Osmolality,Calculated 296 (280-300); Potassium 3.8 mEq/L (3.5-5.1); Sodium 141 mEq/L (136-145); eGFR For African Americans > 60 (> 60); eGFR For Non-African Americans > 60 (> 60)
--- NOTE | 2018-12-07 12:35 | Emergency Department Note ---
Disposition Clinical Impression: Herniation of left side of L4-L5 intervertebral disc Disposition: Admitted As Inpatient Condition: Fair Time of Disposition: 12:34 General Adult HPI - General Chief complaint: ED Back Pain/Injury Stated complaint: Back pain Time Seen by Provider: 12/07/18 10:51 Source: patient, EMS Mode of arrival: EMS Limitations: no limitations - History of Present Illness Pain Scale: 10 - Related Data Home Medications Medication Instructions Recorded Confirmed Levothyroxine [Synthroid] 150 mcg PO QAM 05/10/15 12/07/18 Armodafinil [Nuvigil] 250 mg PO DAILY 05/24/15 12/07/18 Multivitamin [One Daily 1 tab PO DAILY 05/14/18 12/07/18 Multivitamin] Topiramate 100 mg PO DAILY 05/14/18 12/07/18 Aspirin [Lo-Dose Aspirin EC] 81 mg PO DAILY 11/30/18 12/07/18 Naratriptan HCl [Amerge] 2.5 mg PO PRN PRN 12/01/18 12/07/18 FentaNYL PATCH [Duragesic] 75 mcg TD Q72H 12/07/18 12/07/18 Previous Rx's Medication Instructions Recorded Acetaminophen [Tylenol] 1,000 mg PO Q8H tablet 12/04/18 Enoxaparin [Lovenox] 40 mg SQ 0600 syringe 12/04/18 Gabapentin [Neurontin] 300 mg PO BID capsule 12/04/18 Lidocaine Patch [Lidoderm 5% patch] 1 each TP DAILY adh..patch 12/04/18 Methocarbamol [Robaxin] 500 mg PO Q8HR tablet 12/04/18 Methyl Salicylate/Menthol [Bengay] 1 appl TP DAILY tube 12/04/18 Naproxen [Naprosyn] 500 mg PO BIDWM tablet 12/04/18 OXcarbazepine [Trileptal] 600 mg PO BID tablet 12/04/18 Ondansetron ODT [Zofran ODT] 4 mg SL Q4HR PRN tab.rapdis 12/04/18 OxyCODONE/APAP 10/325 [Percocet 1 each PO Q4HR PRN 12 Days tablet 12/04/18 10/325 MG] metFORMIN [Glucophage] 500 mg PO 0800 tablet 12/04/18 Allergies Allergy/AdvReac Type Severity Reaction Status Date / Time Amoxicillin [From Augmentin] AdvReac Hives Verified 05/30/18 21:45 clavulanic acid AdvReac Hives Verified 05/30/18 21:45 [From Augmentin] morphine AdvReac Confusion Verified 05/30/18 21:40 Past Medical History - Past Medical History Medical history: Reports: diabetes, kidney stones, migraine, thyroid disease, other Surgical history: Reports: , knee replacement, thyroidectomy, other Psychiatric history: Reports: no psych history BELL CLEANER history: Reports: no BELL CLEANER history - Social History Smoking Status: Never smoker Smokeless Tobacco Status: No Alcohol use: Reports: none Drug use: Reports: none Physical Exam - General Limitations: no limitations General appearance: alert, in distress Course Vital Signs Temperature 98.9 F 12/07/18 10:53 Pulse Rate 78 12/07/18 10:53 Respiratory Rate 22 12/07/18 10:53 Blood Pressure 146/73 12/07/18 10:53 O2 Sat by Pulse Oximetry 97 12/07/18 10:53 Temperature 98.9 F 12/07/18 10:53 Pulse Rate 79 12/07/18 12:23 Respiratory Rate 22 12/07/18 10:53 Blood Pressure 122/83 12/07/18 12:23 O2 Sat by Pulse Oximetry 95 12/07/18 12:23 Oxygen Delivery Oxygen Delivery Room Air Medical Decision Making - Lab Data Result diagrams: 12/07/18 11:13 12/07/18 11:13 Lab Results 12/07/18 12/07/18 12/07/18 Range/Units 11:13 11:13 11:13 WBC 5.4 (4.3-11.1) K/mcL RBC 3.99 (3.82-4.97) M/mcL Hgb 12.6 (11.5-15.4) g/dL Hct 39.5 (35.3-44.9) % MCV 99.0 (83.0-100.0) fL MCH 31.6 (28.0-33.3) pg MCHC 31.9 (31.6-35.5) g/dL RDW 13.9 (11.5-14.5) % Plt Count 195 (140-400) K/mcL MPV 8.6 L (9.4-12.4) fL Immature Gran % 0.2 (0-4) % Seg Neutrophils % 54.6 % Lymphocytes % 30.1 % Monocytes % 10.8 % Eosinophils % 3.9 % Basophils % 0.4 % Neutrophils # 2.9 (1.6-8.9) K/mcL Lymphocytes # 1.6 (0.6-4.6) K/mcL Monocytes # 0.6 (0.0-1.3) K/mcL Eosinophils # 0.2 (0.0-0.6) K/mcL Basophils # 0.0 (0.0-0.2) K/mcL PT 12.1 (9.4-12.1) Seconds INR 1.1 Sodium 141 (136-145) mEq/L Potassium 3.8 (3.5-5.1) mEq/L Chloride 109 H (98-107) mEq/L Carbon Dioxide 25 (23-29) mEq/L BUN 21 H (6-20) mg/dL Creatinine 0.70 (0.60-1.20) mg/dL Est GFR ( Amer) > 60 (> 60) Est GFR (Non-Af Amer) > 60 (> 60) BUN/Creatinine Ratio 30 H (6-26) Glucose 121 H (70-105) mg/dL Calculated Osmolality 296 (280-300) Calcium 8.7 (8.6-10.3) mg/dL Attestation Statement - Attestation Attestation: I reviewed the residents documentation and agree with the residents assessment and plan of care. I have personally had face to face time with the patient. (Brief History, Brief Exam, and MDM) I personally supervised and was present for the myers/critical portions of the following procedures completed by the resident: EKG 58 year old female presents to the ED with complaints of bakc pain and we have r ecieved a consult phone call from Dr. Thayer (spinal neuro surg) who would logan her admitted to medicine with his consult beause he plans on doing surgery on Monday for her L4-5 discs herniation for pain control over the weekend. WE have started pre-cardiac clearance and will admit to medicine.
[2018-12-07] MEDS ORDERED: *HR* Promethazine 25 MG/ML VIAL IVP PRN (13:05)
[2018-12-07] MEDS ORDERED: Naloxone 0.4 MG/ML INJ IVP PRN (13:05)
[2018-12-07] MEDS ORDERED: Ondansetron ODT 4 MG TAB.RAPDIS SL PRN (13:05)
[2018-12-07] MEDS ORDERED: methylPREDNISolone 125 MG/2 ML VIAL IVP ONE (13:15)
[2018-12-07] MEDS ORDERED: *HR* Dextrose 50 % in Water (Syg) 50 ML SYRINGE IVP PRN (13:16)
[2018-12-07] MEDS ORDERED: Dextrose Gel 15 GM/37.5 ML TUBE PO PRN ×2 (13:16)
[2018-12-07] MEDS ORDERED: D5% in Water 1,000 ML IVC PRN (13:16)
[2018-12-07] MEDS: *HR* FentaNYL (PF) 100 MCG/2 ML VIAL IVP PRN ×2 (13:52→22:06)
[2018-12-07] MEDS: Insulin LISPRO 300 UNITS/3 ML VIAL SQ SCH ×2 (17:22→22:05)
[2018-12-07] MEDS: *HR* OxyCODONE Immed Rel 15 MG TABLET PO PRN (17:54)
[2018-12-07] MEDS ORDERED: *HR* Metoprolol 5 MG/5 ML VIAL IVP ONE (20:01)
[2018-12-07] MEDS: Gabapentin 300 MG CAPSULE PO SCH (20:45)
[2018-12-08] MEDS: *HR* OxyCODONE Immed Rel 15 MG TABLET PO PRN ×3 (04:40→19:51)
[2018-12-08 05:45] LABS: Basophils % 0.3 %; Eosinophils % 0.1 %; Hematocrit 42.3 % (35.3-44.9); Hemoglobin 13.4 g/dL (11.5-15.4); Immature Granulocytes % 0.3 % (0-4); Lymphocytes # 1.6 K/mcL (0.6-4.6); Lymphocytes % 22.6 %; Mean Corpuscular HGB Conc 31.7 g/dL (31.6-35.5); Mean Corpuscular Hemoglobin 31.8 pg (28.0-33.3); Mean Corpuscular Volume 100.2 fL (83.0-100.0); Mean Platelet Volume 8.7 fL (9.4-12.4); Monocytes # 0.5 K/mcL (0.0-1.3); Monocytes % 6.7 %; Platelet Count 258 K/mcL (140-400); Red Blood Count 4.22 M/mcL (3.82-4.97); Red Cell Distribution Width 13.4 % (11.5-14.5); White Blood Count 7.2 K/mcL (4.3-11.1)
[2018-12-08 06:02] LABS: BUN/Creatinine Ratio 29 (6-26); Blood Urea Nitrogen 21 mg/dL (6-20); Calcium 9.3 mg/dL (8.6-10.3); Carbon Dioxide 20 mEq/L (23-29); Chloride 107 mEq/L (98-107); Glucose 124 mg/dL (70-105); Osmolality,Calculated 290 (280-300); Potassium 4.2 mEq/L (3.5-5.1); Sodium 138 mEq/L (136-145); eGFR For African Americans > 60 (> 60); eGFR For Non-African Americans > 60 (> 60)
[2018-12-08] MEDS: *HR* Enoxaparin 40 MG/0.4 ML SYRINGE SQ SCH (06:19)
--- NOTE | 2018-12-08 07:09 | Internal Med History&Physical ---
Date of Encounter: 12/07/18 Time of Encounter: 07:07 Internal Medicine - H&P: HPI Chief complaint: Back pain History of present illness: Ms. Marte is a 58 year old female with history of morbid obesity, NIDDM Type II, peripheral neuropathy, and migraine headaches presents as a transfer from [facility] for surgical management of acute pain of lumbar spine. Patient was admitted November 30 to [facility] for acute onset pain in her lumbar spine. Patient says that there is no inciting injury. Pain progressed gradually over multiple days prior to this admission. No loss of bowel or bladder incontinence. Says that the pain is 10 out of 10. Still has motor and sensory function in this leg although says LLE is weaker than right and having numbness and tingling in this leg. Initially felt pain in her lumbar spine, however, now is having radicular symptoms down her left leg. This is now her main complaint and currently she denies pain in her lumbar spine. MRI with disc sequestration at L4-5 with L5 nerve impingement. At [facility], strategy was focused on pain control and getting patient in to see a spinal surgeon. Patient's was brought to Dr. Licea's office (spinal surgeon) today for evaluation. He plans to bring patient to the OR on Monday and recommends admission to [facility] for continued pain control. Past Med Surg Social Fam HX - Past Medical History Medical history: diabetes, kidney stones, migraine, thyroid disease, other Additional medical history: Neuropathy,Sleep apnea, Idiopathic hypersomnia Psychiatric history: no psych history - Past Surgical History Surgical History: , knee replacement, thyroidectomy, other Additional surgical history: Bilateral knee, x2 - Social History Smoking Status: Never smoker Smokeless Tobacco Status: No Alcohol use: none Drug use: none - Family History Father Living Status: Still Living Hx Family Cardiac Disorders: Yes (HTN) Mother Living Status: Still Living Hx Family Cardiac Disorders: Yes (HTN, A-Fib) Internal Medicine - H&P: Meds Levothyroxine [Synthroid] 150 mcg PO QAM 05/10/15 [History] Armodafinil [Nuvigil] 250 mg PO DAILY 05/24/15 [History] Multivitamin [One Daily Multivitamin] 1 tab PO DAILY 05/14/18 [History] Topiramate 100 mg PO DAILY 05/14/18 [History] Aspirin [Lo-Dose Aspirin EC] 81 mg PO DAILY 11/30/18 [History] Naratriptan HCl [Amerge] 2.5 mg PO PRN PRN 12/01/18 [History] Acetaminophen [Tylenol] 1,000 mg PO Q8H tablet 12/04/18 [Rx] Enoxaparin [Lovenox] 40 mg SQ 0600 syringe 12/04/18 [Rx] Gabapentin [Neurontin] 300 mg PO BID capsule 12/04/18 [Rx] Lidocaine Patch [Lidoderm 5% patch] 1 each TP DAILY adh..patch 12/04/18 [Rx] Methocarbamol [Robaxin] 500 mg PO Q8HR tablet 12/04/18 [Rx] Methyl Salicylate/Menthol [Bengay] 1 appl TP DAILY tube 12/04/18 [Rx] Naproxen [Naprosyn] 500 mg PO BIDWM tablet 12/04/18 [Rx] OXcarbazepine [Trileptal] 600 mg PO BID tablet 12/04/18 [Rx] Ondansetron ODT [Zofran ODT] 4 mg SL Q4HR PRN tab.rapdis 12/04/18 [Rx] OxyCODONE/APAP 10/325 [Percocet 10/325 MG] 1 each PO Q4HR PRN 12 Days tablet 12/04/18 [Rx] metFORMIN [Glucophage] 500 mg PO 0800 tablet 12/04/18 [Rx] FentaNYL PATCH [Duragesic] 75 mcg TD Q72H 12/07/18 [History] Allergy/AdvReac Type Severity Reaction Status Date / Time Amoxicillin [From Augmentin] AdvReac Hives Verified 12/07/18 15:25 clavulanic acid AdvReac Hives Verified 12/07/18 15:25 [From Augmentin] morphine AdvReac Confusion Verified 12/07/18 15:25 All Systems PM: A 10-system review of systems was performed and is negative for pertinent findings except as documented above in the HPI. Review of systems: General: Fevers / Chills / Weight loss / Night sweats Eyes: Blurry Vision / Change in Vision HENT: Ear Pain / Ear Drainage / Rhinorrhea / Throat Pain / Lymphadenopathy Cardiovascular: Chest Pain / Palpatations / Orthopnea / STONE / Weight gain Lungs: Dyspnea / Wheezing / Cough / Sputum production / Pleurisy Abdomen: Abdomen pain / Abdominal distention / Nausea / Vomiting / Diarrhea / Const : Dysuria / Urinary Frequency / Urinary Urgency / Hematuria Extremities: LE edema / Ext pain / Ext erythema Skin: Rashes / Abrasions / Contusions Psych: Hallucinations / Anxiety / Depression Neuro: Weakness / Numbness / Tingling / Facial Droop / Dysphagia - Constitutional Vitals: Temp Pulse Resp BP Pulse Ox 98.7 F 79 20 127/68 93 12/07/18 22:36 12/07/18 22:36 12/07/18 22:36 12/07/18 22:36 12/07/18 22:36 Exam: General: Ill-appearing and in no acute distress. Morbidly obese HEENT: No erythema of posterior pharynx. No exudates. Lymphatics: No mandibular or cervical lymphadenopathy Cardiovascular: RRR. No murmurs. No chest wall tenderness. Lungs: Clear to auscelltation bilaterally. Regular chest rise. Abdomen: Non-tender. No rebound or gaurding. Nl bowel sounds. Extremities: No edema. 2+ pulses radial and pedal pulses Skin: No rahses, abrasions, or contusions. Nl cap refill. MSK: Tenderness over lumbar spine. Exquisite tenderness of LLE. Sensation intact. Patient able to wiggle toes and lift leg off of bed Psych: Nl attention. A&Ox3 Neuro: transportation logistics internship II-XII intact. 5/5 strength. Sensation to light touch and pinprick intact. Internal Med - H&P Results - Labs CBC & Chem 7: 12/08/18 04:52 12/08/18 04:52 Labs: Short CBC 12/07/18 12/08/18 Range/Units 11:13 04:52 WBC 5.4 7.2 (4.3-11.1) K/mcL Hgb 12.6 13.4 (11.5-15.4) g/dL Hct 39.5 42.3 (35.3-44.9) % Plt Count 195 258 (140-400) K/mcL Neutrophils # 2.9 5.0 (1.6-8.9) K/mcL BMP 12/07/18 12/08/18 11:13 04:52 Sodium 141 138 Potassium 3.8 4.2 Chloride 109 H 107 Carbon Dioxide 25 20 L BUN 21 H 21 H Creatinine 0.70 0.73 Glucose 121 H 124 H Calcium 8.7 9.3 - Impressions ITS Impressions Chest X-Ray 12/07/18 11:08 IMPRESSION: 1. Minimal subsegmental atelectasis lateral lower left lung. 2. Calcific atherosclerosis aorta. 3. Cardiomegaly. D/ / Yvan Jade / Yvan Jade Interpreting Provider: Yvan Jade - Assessment and Plan (1) Intractable back pain Current Visit: No Status: Acute Assessment and plan: Patient with history of morbid obesity presents as a transfer from [facility] for surgical management of acute pain of lumbar spine. -No red flag symptoms at this time -MRI with disc sequestration at L4-5 with L5 nerve impingement -Dr. Licea has plans to bring patient to the OR on Monday -Says she didn't get any benefit from Tylenol, Naprosyn, fentanyl or lidocaine patches, oxycodone, gabapentin, or PT @[facility] No a lot of other options. Will try steroid pulse dosing PLAN: - Oxycodone 15mg q4 prn for pain 1-8 on scale - Fentanyl 50mcg q3 prn for pain 9-10 on scale - Gabapentin 600mg q8 - Methylprednisone 125mg IV x1 then Prednisone 40mg x4 days (2) Herniation of left side of L4-L5 intervertebral disc Current Visit: Yes Status: Acute Assessment and plan: See above (3) DM type 2 (diabetes mellitus, type 2) Current Visit: No Status: Chronic Assessment and plan: Currently only on oral outpatient. - LDSS Qualifiers: Diabetes mellitus manager long term care insulin use: without manager long term care use Diabetes mellitus complication status: without complication Qualified Code(s): E11.9 - Type 2 diabetes mellitus without complications (4) Morbid obesity Current Visit: No Status: Chronic Assessment and plan: Complicates all aspects of care (5) LES (obstructive sleep apnea) Current Visit: No Status: Chronic
[2018-12-08] MEDS: Insulin LISPRO 300 UNITS/3 ML VIAL SQ SCH ×4 (08:31→19:55)
[2018-12-08] MEDS: Gabapentin 300 MG CAPSULE PO SCH ×3 (08:36→19:50)
[2018-12-08] MEDS: predniSONE 20 MG TABLET PO SCH (08:36)
[2018-12-08] MEDS: Aspirin Enteric Coated 81 MG Tablet PO SCH (08:36)
[2018-12-08] MEDS: (Armodafinil [Nuvigil] 250 MG) PO SCH (08:37)
[2018-12-08] MEDS: *HR* FentaNYL (PF) 100 MCG/2 ML VIAL IVP PRN ×2 (08:43→17:31)
--- NOTE | 2018-12-08 11:36 | Internal Med Progress Note ---
Hospitalist Progress Note - Encounter Date of Encounter: 12/08/18 Time of Encounter: 11:34 - Subjective Interval History: No acute events. Pain is 8/10, pain medication helps. Denies fevers/chills, bowel/bladder issues. - Exam Vitals: Temp Pulse Resp BP Pulse Ox 98.9 F 69 16 120/71 94 12/08/18 11:00 12/08/18 11:00 12/08/18 11:00 12/08/18 11:00 12/08/18 11:00 Exam: General: Ill-appearing and in no acute distress. Morbidly obese HEENT: No erythema of posterior pharynx. No exudates. Lymphatics: No mandibular or cervical lymphadenopathy Cardiovascular: RRR. No murmurs. No chest wall tenderness. Lungs: Clear to auscelltation bilaterally. Regular chest rise. Abdomen: Non-tender. No rebound or gaurding. Nl bowel sounds. Extremities: No edema. 2+ pulses radial and pedal pulses Skin: No rahses, abrasions, or contusions. Nl cap refill. MSK: Tenderness over lumbar spine. Exquisite tenderness of LLE. Sensation intact. Patient able to wiggle toes and lift leg off of bed Psych: Nl attention. A&Ox3 Neuro: public address technician II-XII intact. 5/5 strength. Sensation to light touch and pinprick intact. - Assessment and Plan (1) Intractable back pain Current Visit: No Status: Acute Assessment and Plan: Patient with history of morbid obesity presents as a transfer from [facility] for surgical management of acute pain of lumbar spine. No red flag symptoms at this time -MRI with disc sequestration at L4-5 with L5 nerve impingement -Says she didn't get any benefit from Tylenol, Naprosyn, fentanyl or lidocaine patches, oxycodone, gabapentin, or PT @[facility] PLAN: - continue supportive care, pain management - Gabapentin 600mg q8 - Methylprednisone 125mg IV x1 then Prednisone 40mg x4 days - OR in tow days with Dr. Salinas. (2) Herniation of left side of L4-L5 intervertebral disc Current Visit: Yes Status: Acute Assessment and Plan: See above (3) DM type 2 (diabetes mellitus, type 2) Current Visit: No Status: Chronic Assessment and Plan: Currently only on oral outpatient. ISS Diabetes diet (4) Morbid obesity Current Visit: No Status: Chronic Assessment and Plan: Complicates all aspects of care (5) LES (obstructive sleep apnea) Current Visit: No Status: Chronic - Time Spent with Patient Total time spent is greater than 50% in coordination of care (as documented) at patient's floor/unit and/or counseling patient: Internal Medicine: Result - Labs CBC & Chem 7: 12/08/18 04:52 12/08/18 04:52 Labs: Short CBC 12/07/18 12/08/18 Range/Units 11:13 04:52 WBC 5.4 7.2 (4.3-11.1) K/mcL Hgb 12.6 13.4 (11.5-15.4) g/dL Hct 39.5 42.3 (35.3-44.9) % Plt Count 195 258 (140-400) K/mcL Neutrophils # 2.9 5.0 (1.6-8.9) K/mcL BMP 12/07/18 12/08/18 11:13 04:52 Sodium 141 138 Potassium 3.8 4.2 Chloride 109 H 107 Carbon Dioxide 25 20 L BUN 21 H 21 H Creatinine 0.70 0.73 Glucose 121 H 124 H Calcium 8.7 9.3 - ABG Interpretation ABG results: PT/INR, D-dimer PT 12.1 Seconds (9.4-12.1) 12/07/18 11:13 - Impressions Impressions Chest X-Ray 12/07/18 11:08 IMPRESSION: 1. Minimal subsegmental atelectasis lateral lower left lung. 2. Calcific atherosclerosis aorta. 3. Cardiomegaly. D/ / Yvan Jade / Yvan Jade Interpreting Provider: Yvan Jade Consult Discharge Plan - Plan Referrals: Mansi Reagan, PEST CONTROL PILOT [Primary Care Provider] - __ (3) DM type 2 (diabetes mellitus, type 2) Qualifiers: Diabetes mellitus long term care pharmacist insulin use: without long term care pharmacist use Diabetes mellitus complication status: without complication Qualified Code(s): E11.9 - Type 2 diabetes mellitus without complications
[2018-12-08] MEDS ORDERED: NARATRIPTAN HCL 2.5 MG PO PRN (13:26)
[2018-12-08] MEDS: OXcarbazepine 150 MG TABLET PO SCH (19:50)
[2018-12-08 21:52] LABS: Bilirubin,Urine Negative (Negative); Blood,Urine Negative (Negative); Clarity,Urine Clear (Clear); Color,Urine Yellow (Yellow); Glucose,Urine (UA) Normal (Normal); Ketones,Urine Negative (Negative); Leukocyte Esterase,Urine Negative (Negative); Nitrite,Urine Negative (Negative); PH,Urine 6.5 pH Units (5.0-8.0); Protein,Urine Negative (Neg-Trace); Specific Gravity,Urine 1.026 (1.010-1.025); Urobilinogen,Urine Normal (Normal)
[2018-12-09] MEDS: *HR* FentaNYL (PF) 100 MCG/2 ML VIAL IVP PRN ×2 (02:14→23:45)
[2018-12-09] MEDS: *HR* Enoxaparin 40 MG/0.4 ML SYRINGE SQ SCH (05:40)
[2018-12-09] MEDS: *HR* OxyCODONE Immed Rel 15 MG TABLET PO PRN ×4 (05:56→20:58)
[2018-12-09] MEDS: Gabapentin 300 MG CAPSULE PO SCH ×3 (08:15→20:58)
[2018-12-09] MEDS: OXcarbazepine 150 MG TABLET PO SCH ×2 (08:15→20:58)
[2018-12-09] MEDS: Aspirin Enteric Coated 81 MG Tablet PO SCH (08:15)
[2018-12-09] MEDS: predniSONE 20 MG TABLET PO SCH (08:15)
[2018-12-09] MEDS: Topiramate 25 MG TABLET PO SCH (08:15)
[2018-12-09] MEDS: (Armodafinil [Nuvigil] 250 MG) PO SCH (08:16)
[2018-12-09] MEDS: Insulin LISPRO 300 UNITS/3 ML VIAL SQ SCH ×4 (08:16→20:59)
--- NOTE | 2018-12-09 10:31 | Internal Med Progress Note ---
Hospitalist Progress Note - Encounter Date of Encounter: 12/09/18 Time of Encounter: 10:29 - Subjective Interval History: No acute events. Back pain slightly better, stable. - Exam Vitals: Temp Pulse Resp BP Pulse Ox 97.4 F L 60 15 128/79 94 12/09/18 07:31 12/09/18 07:31 12/09/18 07:31 12/09/18 07:31 12/09/18 07:31 Exam: Patient limits spinal and lower extremity exam due to pain. General: NAD Cardiovascular: RRR. Lungs: CTAB Abdomen: Non-tender. No rebound or gaurding. Nl bowel sounds. Extremities: No edema. 2+ pulses radial and pedal pulses Skin: No rahses, abrasions, or contusions. Nl cap refill. Ext: Tenderness over lumbar spine. Exquisite tenderness of LLE. Sensation intact. - Assessment and Plan (1) Intractable back pain Current Visit: No Status: Acute Assessment and Plan: Patient with history of morbid obesity presents as a transfer from [facility] for surgical management of acute pain of lumbar spine. No red flag symptoms at this time -MRI with disc sequestration at L4-5 with L5 nerve impingement -Says she didn't get any benefit from Tylenol, Naprosyn, fentanyl or lidocaine patches, oxycodone, gabapentin, or PT @[facility] PLAN: - continue supportive care, pain management - Gabapentin 600mg q8 - Continue Prednisone 40mg daily - OR tomorrow with Dr. Licea. (2) Herniation of left side of L4-L5 intervertebral disc Current Visit: Yes Status: Acute Assessment and Plan: See above (3) DM type 2 (diabetes mellitus, type 2) Current Visit: No Status: Chronic Assessment and Plan: Currently only on oral outpatient. ISS Diabetes diet (4) Morbid obesity Current Visit: No Status: Chronic Assessment and Plan: Complicates all aspects of care (5) LES (obstructive sleep apnea) Current Visit: No Status: Chronic - Time Spent with Patient Total time spent is greater than 50% in coordination of care (as documented) at patient's floor/unit and/or counseling patient: Internal Medicine: Result - Labs CBC & Chem 7: 12/08/18 04:52 12/08/18 04:52 Labs: Urine 12/08/18 Range/Units 21:45 Urine Color Yellow (Yellow) Urine Clarity Clear (Clear) Urine pH 6.5 (5.0-8.0) pH Units Ur Specific [place] 1.026 H (1.010-1.025) Urine Protein Negative (Neg-Trace) mg/dL Urine Glucose (UA) Normal (Normal) mg/dL - ABG Interpretation ABG results: PT/INR, D-dimer PT 12.1 Seconds (9.4-12.1) 12/07/18 11:13 Consult Discharge Plan - Plan Referrals: Mansi Reagan, TOLL TRANSMISSION WORKER [Primary Care Provider] - (3) DM type 2 (diabetes mellitus, type 2) Qualifiers: Diabetes mellitus termite control technician insulin use: without termite control technician use Diabetes mellitus complication status: without complication Qualified Code(s): E11.9 - Type 2 diabetes mellitus without complications
--- NOTE | 2018-12-09 19:28 | Spine Progress Note ---
Date of Encounter: 12/09/18 Time of Encounter: 19:25 - Assessment and Plan (1) Lumbar stenosis with neurogenic claudication Current Visit: Yes Status: Chronic On exam she is in obvious distress secondary to left lower extremity pain. She is unable to dorsiflex or plantarflex the left foot which is 1 on a motor scale. Her hips move symmetrically. She has no clonus. She is able to fire all other lower extremity motor groups. MRI of the lumbar spine reveals severe stenosis distal to the L3-4 extending through the L4-5 interspace. There is multilevel degenerative changes and disc desiccation. The stenosis is multifactorial but in part due to a large disc extrusion at L4-5 with proximal migration of the fragment. Impression: 1) lumbar stenosis 2) lumbar radiculopathy 3) left leg weakness Plan: Due to her failure of nonoperative treatment, concerning neurologic deficit/leg weakness, intractable pain I find it reasonable to consider surgery in the form of a laminectomy L3-L5. Risk benefits possible competitions and alternatives were discussed and the patient would like to proceed. (2) Lumbar radiculopathy Current Visit: Yes Status: Chronic (3) Left leg weakness Current Visit: Yes Status: Chronic Subjective Principal diagnosis: Lumbar stenosis, lumbar radiculopathy, left leg weakness Interval history: Mr. Carcamo a 58-year-old woman whose had a 10 day history of severe predominantly left lower extremity radicular symptoms associated with weakness in the left lower extremity. She has been in [facility] stepdown unit for appro ximately 5 days before she was referred to the [facility]. She was in intractable pain rating it a 9 on a pain scale and noted to have significant weakness in the left lower extremity. She was admitted for definitive management, pain control, and medical optimization prior to surgery. She still rates the pain as a 9 on a pain scale. She has no bowel bladder symptomatology. She has significant difficulty with ambulation. Objective Vital signs: Vital Signs Temp Pulse Resp BP Pulse Ox 12/09/18 19:23 98.4 F 73 17 121/71 94 12/09/18 12:12 98.4 F 71 15 130/75 94 12/09/18 07:31 97.4 F L 60 15 128/79 94 12/09/18 04:26 98.4 F 69 17 127/61 98 Intake and Output 09/12/09/18 12/09/18 07:59 15:59 23:59 Intake Total 1020 / 1020 Output Total 500 / 500 Balance -500 / 520 1020 / 520 Intake: Oral 1020 / 1020 Output: Urine 500 / 500 Other: Meal Lunch Percent of Meal Consumed 90% Blood Glucose* 107 164 152 - Labs CBC & BMP: 12/08/18 04:52 12/08/18 04:52 Labs: Abnormal lab results MCV 100.2 fL (83.0-100.0) H 12/08/18 04:52 MPV 8.7 fL (9.4-12.4) L 12/08/18 04:52 Chloride 109 mEq/L (98-107) H 12/07/18 11:13 Carbon Dioxide 20 mEq/L (23-29) L 12/08/18 04:52 BUN 21 mg/dL (6-20) H 12/08/18 04:52 BUN/Creatinine Ratio 29 (6-26) H 12/08/18 04:52 Glucose 124 mg/dL (70-105) H 12/08/18 04:52 POC Glucose 152 mg/dL (70-99) H 12/09/18 17:03 Ur Specific [place] 1.026 (1.010-1.025) H 12/08/18 21:45 Consult Discharge Plan - Plan Referrals: Mansi Reagan, WARDROBE SUPERVISOR [Primary Care Provider] -
[2018-12-10] MEDS: *HR* OxyCODONE Immed Rel 15 MG TABLET PO PRN ×3 (01:21→17:59)
[2018-12-10] MEDS: *HR* Enoxaparin 40 MG/0.4 ML SYRINGE SQ SCH (04:49)
[2018-12-10] MEDS: Insulin LISPRO 300 UNITS/3 ML VIAL SQ SCH ×4 (08:00→21:35)
[2018-12-10] MEDS ORDERED: Clindamycin 900 MG/50 ML 900 MG/50 ML IV.SOLN IVPB ONE ×2 (08:00→20:33)
[2018-12-10] MEDS ORDERED: Ringers Solution, Lactated 1,000 ML IVC SCH (08:15)
[2018-12-10] MEDS ORDERED: Bacitracin 50,000 UNIT, Polymyxin B Sulfate 500,000 UNIT, Sodium Chloride IRRigation 1,... IR ONE (08:30)
[2018-12-10] MEDS: *HR* FentaNYL (PF) 100 MCG/2 ML VIAL IVP PRN ×2 (08:44→14:41)
[2018-12-10] MEDS: (Armodafinil [Nuvigil] 250 MG) PO SCH (09:00)
[2018-12-10] MEDS: Aspirin Enteric Coated 81 MG Tablet PO SCH (09:00)
[2018-12-10] MEDS: Topiramate 25 MG TABLET PO SCH (09:00)
[2018-12-10] MEDS: Gabapentin 300 MG CAPSULE PO SCH ×3 (09:00→22:17)
[2018-12-10] MEDS: OXcarbazepine 150 MG TABLET PO SCH ×2 (09:00→22:17)
[2018-12-10] MEDS: predniSONE 20 MG TABLET PO SCH (09:00)
--- NOTE | 2018-12-10 09:26 | Internal Med Progress Note ---
<Amador Garza - Last Filed: 12/10/18 14:33> Hospitalist Progress Note - Encounter Date of Encounter: 12/10/18 Time of Encounter: 09:30 - Subjective Interval History: Patient seen and examined at bedside. No acute events overnight. Patient reports continued numbness of bilateral lower extremities with unchanged back pain. Denies any headache, sinus pressure, sinus pain, chest pain, shortness of breath, cough, abdominal pain, nausea, vomiting, or dysuria. No diarrhea or constipation. Reports she is hungry and anxious to go to surgery. - Exam Vitals: Temp Pulse Resp BP Pulse Ox 97.9 F 68 16 126/67 98 12/10/18 06:30 12/10/18 06:30 12/10/18 06:30 12/10/18 06:30 12/10/18 06:30 Exam: Constitutional: Obese female in no acute distress Head: Normocephalic, atraumatic Eyes: PERRL, EOMI, conjunctiva pink, sclera anicteric Neck: Supple, trachea midline Lungs: Clear to auscultation bilaterally. Nonlabored breathing. No wheezes, rales, or rhonchi noted. Cardiac: RRR. +s1+s2 No murmurs, clicks, or rubs noted. GI: Abdomen soft, nontender, obese Extremities: Warm, radial pulses palpable and symmetrical. No cyanosis. Trace pitting edema. Neuro: Alert and oriented 3. No focal deficits. Normal speech. Skin: Warm, dry, and intact. - Assessment and Plan (1) Intractable back pain Current Visit: Yes Status: Acute Assessment and Plan: Patient with history of morbid obesity presents as a transfer from [facility] for surgical management of acute pain of lumbar spine. No red flag symptoms at this time -MRI from [place] on 11/30/18 demonstrated disc sequestration at L4-5 with L5 nerve impingement -Reports no benefit from Tylenol, Naprosyn, fentanyl or lidocaine patches, oxycodone, gabapentin, or PT @[facility] PLAN: - continue supportive care, pain management - Gabapentin 600mg q8hr - Continue Prednisone 40mg daily - Currently NPO and awaiting to go to the OR with Dr. Licea (2) Herniation of left side of L4-L5 intervertebral disc Current Visit: Yes Status: Acute Assessment and Plan: See above (3) DM type 2 (diabetes mellitus, type 2) Current Visit: Yes Status: Chronic Assessment and Plan: Currently home regimen consists of metformin 500 daily Blood glucose is well admitted remain well controlled Continue low-dose sliding scale insulin Resume diabetic diet after her surgery (4) Morbid obesity Current Visit: Yes Status: Chronic Assessment and Plan: Complicates all aspects of care Chronic issue (5) LES (obstructive sleep apnea) Current Visit: Yes Status: Chronic Assessment and Plan: Patient has history of LES and uses CPAP at home Continue CPAP while sleeping - Time Spent with Patient Total time spent is greater than 50% in coordination of care (as documented) at patient's floor/unit and/or counseling patient: Internal Medicine: Result - Labs CBC & Chem 7: 12/10/18 09:39 12/10/18 09:39 - ABG Interpretation ABG results: PT/INR, D-dimer PT 12.1 Seconds (9.4-12.1) 12/07/18 11:13 Consult Discharge Plan - Plan Referrals: Mansi Reagan, PRESS OFFBEARER [Primary Care Provider] - <Eamon Saldana - Last Filed: 12/10/18 16:12> Hospitalist Progress Note - Encounter Date of Encounter: 12/10/18 - Exam Vitals: Temp Pulse Resp BP Pulse Ox 97.9 F 68 16 126/67 98 12/10/18 06:30 12/10/18 06:30 12/10/18 06:30 12/10/18 06:30 12/10/18 06:30 - Assessment and Plan (1) Intractable back pain Current Visit: Yes Status: Acute (2) Herniation of left side of L4-L5 intervertebral disc Current Visit: Yes Status: Acute (3) DM type 2 (diabetes mellitus, type 2) Current Visit: Yes Status: Chronic (4) Morbid obesity Current Visit: Yes Status: Chronic (5) LES (obstructive sleep apnea) Current Visit: Yes Status: Chronic - Time Spent with Patient Total time spent is greater than 50% in coordination of care (as documented) at patient's floor/unit and/or counseling patient: Internal Medicine: Result - Labs CBC & Chem 7: 12/10/18 09:39 12/10/18 09:39 Labs: Short CBC 12/10/18 Range/Units 09:39 WBC 7.5 (4.3-11.1) K/mcL Hgb 12.7 (11.5-15.4) g/dL Hct 39.8 (35.3-44.9) % Plt Count 220 (140-400) K/mcL Neutrophils # 3.5 (1.6-8.9) K/mcL BMP 12/10/18 09:39 Sodium 143 Potassium 3.6 Chloride 107 Carbon Dioxide 27 BUN 21 H Creatinine 0.70 Glucose 101 Calcium 8.8 - ABG Interpretation ABG results: PT/INR, D-dimer PT 12.1 Seconds (9.4-12.1) 12/10/18 09:39 - Attending Attestation I saw evaluated and examined this patient and reviewed objective data including labs and my medical decision-making was reviewed with the Resident Physician/Medical Student. I agree with the documented findings, disposition and treatment plan as described except to any changes set forth below. We independently had [id number] contact with the patient. _ <Amador Garza - Last Filed: 12/10/18 14:33> (3) DM type 2 (diabetes mellitus, type 2) Qualifiers: Diabetes mellitus ad terminal makeup operator insulin use: without shelter use Diabetes mellitus complication status: without complication Qualified Code(s): E11.9 - Type 2 diabetes mellitus without complications <Eamon Saldana - Last Filed: 12/10/18 16:12> (3) DM type 2 (diabetes mellitus, type 2) Qualifiers: Diabetes mellitus shelter insulin use: without shelter use Diabetes mellitus complication status: without complication Qualified Code(s): E11.9 - Type 2 diabetes mellitus without complications
[2018-12-10 09:49] LABS: Basophils % 0.3 %; Eosinophils # 0.2 K/mcL (0.0-0.6); Eosinophils % 2.1 %; Hematocrit 39.8 % (35.3-44.9); Hemoglobin 12.7 g/dL (11.5-15.4); Immature Granulocytes % 0.3 % (0-4); Lymphocytes # 3.1 K/mcL (0.6-4.6); Lymphocytes % 40.6 %; Mean Corpuscular HGB Conc 31.9 g/dL (31.6-35.5); Mean Corpuscular Hemoglobin 31.8 pg (28.0-33.3); Mean Corpuscular Volume 99.5 fL (83.0-100.0); Mean Platelet Volume 8.6 fL (9.4-12.4); Monocytes # 0.8 K/mcL (0.0-1.3); Monocytes % 9.9 %; Neutrophils # 3.5 K/mcL (1.6-8.9); Platelet Count 220 K/mcL (140-400); Segmented Neutrophils % 46.8 %; White Blood Count 7.5 K/mcL (4.3-11.1)
[2018-12-10 09:56] LABS: INR 1.1; Prothrombin Time 12.1 Seconds (9.4-12.1)
[2018-12-10 10:17] LABS: BUN/Creatinine Ratio 30 (6-26); Blood Urea Nitrogen 21 mg/dL (6-20); Calcium 8.8 mg/dL (8.6-10.3); Carbon Dioxide 27 mEq/L (23-29); Chloride 107 mEq/L (98-107); Glucose 101 mg/dL (70-105); Osmolality,Calculated 299 (280-300); Potassium 3.6 mEq/L (3.5-5.1); Sodium 143 mEq/L (136-145); eGFR For African Americans > 60 (> 60); eGFR For Non-African Americans > 60 (> 60)
--- NOTE | 2018-12-10 12:16 | Electrocardiograph Report ---
[address] [place], [place] [address] Test Date: 2018-12-07 Pat Name: Sol Marte Department: EXAM5 Room: [facility] Gender: F Team Assembler: : 1960 Requested By: Trung Mcnally Order Number: [id number] Reading MD: Chandu Hammonds Measurements Intervals [place] Rate: 72 P: 42 CA: 199 QRS: 92 QRSD: 99 T: 36 QT: 417 QTc: 457 Interpretive Statements Sinus rhythm Borderline right axis deviation Electronically Signed On 12-10-2018 12:14:34 EDT by Chandu Hammonds
[2018-12-10] MEDS ORDERED: *HR* FentaNYL (PF) 100 MCG/2 ML VIAL ONE ×3 (20:00→21:23)
[2018-12-10] MEDS ORDERED: *HR* Propofol 200 MG/20 ML VIAL IVP ONE (20:00)
[2018-12-10] MEDS ORDERED: Dexamethasone 4 MG/ML VIAL ONE (20:02)
[2018-12-10] MEDS ORDERED: Lidocaine -MPF 2% 2 ML VIAL ONE (20:02)
[2018-12-10] MEDS ORDERED: Ondansetron 4 MG/2 ML VIAL ONE (20:02)
[2018-12-10] MEDS ORDERED: *HR* Succinylcholine 200 MG/10 ML VIAL IVP ONE (20:02)
--- NOTE | 2018-12-10 20:12 | Anesthesia Evaluation PreOp ---
Date of Encounter: 12/10/18 Time of Encounter: 20:00 - Past History Planned Operation: Laminectomy L3-5 Cardiac History: Denies any Significant Hx Pulmonary History: LES Dx PICK OUT HAND History: Other (Migraines) Other Medical History: Diabetes Type II, Thyroid (Hypothyroid), Other (Morbid Obesity) Anesthesia History: No Prior Anesthetic Complications : No Alcohol Use: none Drug use: none Medications and Allergies Levothyroxine [Synthroid] 150 mcg PO QAM 05/10/15 [History] Armodafinil [Nuvigil] 250 mg PO DAILY 05/24/15 [History] Multivitamin [One Daily Multivitamin] 1 tab PO DAILY 05/14/18 [History] Topiramate 100 mg PO DAILY 05/14/18 [History] Aspirin [Lo-Dose Aspirin EC] 81 mg PO DAILY 11/30/18 [History] Naratriptan HCl [Amerge] 2.5 mg PO PRN PRN 12/01/18 [History] Acetaminophen [Tylenol] 1,000 mg PO Q8H tablet 12/04/18 [Rx] Enoxaparin [Lovenox] 40 mg SQ 0600 syringe 12/04/18 [Rx] Gabapentin [Neurontin] 300 mg PO BID capsule 12/04/18 [Rx] Lidocaine Patch [Lidoderm 5% patch] 1 each TP DAILY adh..patch 12/04/18 [Rx] Methocarbamol [Robaxin] 500 mg PO Q8HR tablet 12/04/18 [Rx] Methyl Salicylate/Menthol [Bengay] 1 appl TP DAILY tube 12/04/18 [Rx] Naproxen [Naprosyn] 500 mg PO BIDWM tablet 12/04/18 [Rx] OXcarbazepine [Trileptal] 600 mg PO BID tablet 12/04/18 [Rx] Ondansetron ODT [Zofran ODT] 4 mg SL Q4HR PRN tab.rapdis 12/04/18 [Rx] OxyCODONE/APAP 10/325 [Percocet 10/325 MG] 1 each PO Q4HR PRN 12 Days tablet 12/04/18 [Rx] metFORMIN [Glucophage] 500 mg PO 0800 tablet 12/04/18 [Rx] FentaNYL PATCH [Duragesic] 75 mcg TD Q72H 12/07/18 [History] Allergy/AdvReac Type Severity Reaction Status Date / Time Amoxicillin [From Augmentin] AdvReac Hives Verified 12/07/18 15:25 clavulanic acid AdvReac Hives Verified 12/07/18 15:25 [From Augmentin] morphine AdvReac Confusion Verified 12/07/18 15:25 - Meds/Allergy Pre-op Review Medications Reviewed: Yes Allergies Reviewed: Yes Beta Blockers on Current Med List: No Anesthesia Results - Labs 12/10/18 09:39 12/10/18 09:39 - Imaging EKG: report reviewed (SR) Anesthesia Exam Vital Signs/O2 Sat/Glucose, Most Current Temp Pulse Resp BP Pulse Ox 12/10/18 18:50 98.4 F 66 16 114/68 93 Height: 5'1 Weight: 280 lbs NPO (# of Hours): MN Pain Scale: 1 - HEENT Pupil (Motor): Pupils equal, EOMI Mallampati: III Teeth: Normal Oral Opening: Greater than 3 - PICK OUT HAND LOC: Oriented PICK OUT HAND Motor: Normal RUE, Normal LUE, Normal Face, Deficit RLE (weakness), Deficit LLE PICK OUT HAND Sensory: Normal: RUE, LUE, Face, Deficit: RLE, LLE (paresthesia) - Cardiac Rhythm: Regular Murmur: None JVD: No Carotid Bruit: No - Pulmonary Breath Sounds: bilateral Clear Respiratory Effort: Symmetrical Anesthesia Assess/Plan ASA Score: 3 (LES MO DM) Level of consciousness: Cooperative, Oriented Anesthetic Plan: General Autologous Blood: No Monitoring Plan: Standard Monitors Recovery Plan: PACU (Discussed GA, agrees to proceed)
[2018-12-10] MEDS ORDERED: Acetaminophen IV 1,000 MG/100 ML INFUS..BTL ONE (20:25)
[2018-12-10] MEDS ORDERED: Famotidine 20 MG/2 ML VIAL ONE (20:25)
[2018-12-10] MEDS ORDERED: EPHEDrine 50 MG/ML VIAL ONE (20:55)
[2018-12-10] MEDS ORDERED: *HR* PHENYLEPHRINE 1,000 MCG/10 ML SYRINGE IVP ONE (20:55)
[2018-12-10] MEDS ORDERED: *HR* HYDROMORPHONE 2 MG/ML VIAL ONE (22:05)
--- NOTE | 2018-12-10 22:27 | Orthopedic Operative Note ---
Date of procedure: 12/10/18 Pre-op diagnosis: Lumbar stenosis, lumbar radiculopathy Post-op diagnosis: same Operation/Findings: Laminectomy L3-L5: The patient was brought to the operative theater where she underwent general endotracheal anesthesia. She was given antibiotics prior to t he start of the procedure. Compression boots and stockings were used for deep vein thrombosis prophylaxis. The patient was placed prone on a Arturo table. The back was prepped and draped in the usual sterile fashion. An incision was marked and centered over the L3-L5 interspaces in the midline. We used Bovie cautery to make an incision and then this incision was deepened through the lumbar fascia. Bovie cautery and Pritchett elevators were used to reflect the paraspinal musculature to the lateral extent of the L3-4 and L4-5 facet joints bilaterally. Rola clamps were placed over the spinous processes of L4 and L5 and an intraoperative lateral fluorograph was obtained. A discusssion was held between the radiologist and surgeon who both confirmed we were at the correct operative level. We then removed the supraspinous and interspinous ligaments between L4 and L5 and subsequently removed the ligamentum flavum from its origin on the distal undersurface of the L4 lamina. The ligamentum flavum was noted to be quite hypertrophied as well as the facets were hypertrophied. This required performing a laminectomy of L4 with partial medial facetectomies including undercutting of the L4-L5 facets to decompress the lateral recesses. We inspected the L4-L5 disc space and the area believed the lamina of L4 on the left side. There was noted to be significant extruded disc material which had migrated proximally to the L4-5 disc space. This extruded disc material was removed and sent for pathologic evaluation. We moved proximally into the L3-4 level and decompress the lateral recesses and remove hypertrophied ligamentum flavum at L3-4. We also did a partial L3 laminectomy. We undercut the facets at this level. After the decompression was complete,we checked the foramen and the traversing nerve roots at L3-4 and L4-5 and they were found to be free and patent. We copiously irrigated the wound and then closed the wound in layers with 1 Vicryl for the fascia, 2-0 Vicryl for the subcutaneous tissue, and Dermabond was used for skin closure. Sterile dressings were placed over the wound, the patient was turned supine in a hospital bed, and was extubated in the operative theater. All sponge needles and instrument counts were correct at the end of the procedure. The patient tolerated the procedure well without complications. Anesthesia: GETA Surgeon: Ike Licea Jr Was there an lab assistant present: No Estimated blood loss (cc): 20 Specimen: L4-5 disc material Condition: stable Disposition: PACU
[2018-12-10] MEDS ORDERED: Ondansetron 4 MG/2 ML VIAL IVP ONE (22:55)
[2018-12-10] MEDS: *HR* HYDROmorphone (PF) 1 MG/ML SYRINGE IVP PRN ×2 (23:02→23:10)
[2018-12-10] MEDS ORDERED: Acetaminophen 325 MG TABLET PO PRN (23:29)
[2018-12-10] MEDS ORDERED: Naloxone 0.4 MG/ML INJ IVP PRN (23:29)
--- NOTE | 2018-12-11 00:20 | Anesthesia Evaluation Post Op ---
Date of Encounter: 12/11/18 Time of Encounter: 23:00 - Vital Signs Vital Signs: Vital Signs/O2 Sat/Glucose, Most Current Temp Pulse Resp BP Pulse Ox 12/10/18 23:52 88 16 135/82 95 12/10/18 23:51 94 12/10/18 23:37 98.3 F 92 16 137/87 92 12/10/18 23:30 97.8 F 99 10 151/93 93 12/10/18 23:20 92 10 142/82 95 12/10/18 23:10 98.1 F 93 12 145/90 95 12/10/18 23:00 98 12 159/77 97 12/10/18 22:50 100 12 171/85 99 12/10/18 22:40 97.7 F 103 14 147/99 99 - Lungs Lungs: Clear Ascult./Percussion - Airway Airway: Non-obstructed - Cardiovascular Regular Rate - Mental Status Mental Status: Alert & Oriented, Answers Appropriately - Pain Pain Scale: 1 - Nausea Vomiting Nausea Vomiting: Not Present - Hydration Hydration: Ice chips - Discharge PostOp Status: Transfer Patient to floor
[2018-12-11] MEDS: *HR* OxyCODONE Immed Rel 5 MG TABLET PO PRN ×4 (00:57→20:11)
[2018-12-11] MEDS: *HR* HYDROcodone/Acet 5/325 mg TABLET PO PRN ×2 (04:01→17:25)
[2018-12-11 05:40] LABS: Hematocrit 40.5 % (35.3-44.9); Hemoglobin 12.9 g/dL (11.5-15.4); Mean Corpuscular HGB Conc 31.9 g/dL (31.6-35.5); Mean Corpuscular Hemoglobin 31.2 pg (28.0-33.3); Mean Corpuscular Volume 97.8 fL (83.0-100.0); Mean Platelet Volume 8.7 fL (9.4-12.4); Platelet Count 228 K/mcL (140-400); Red Blood Count 4.14 M/mcL (3.82-4.97); Red Cell Distribution Width 13.5 % (11.5-14.5); White Blood Count 11.1 K/mcL (4.3-11.1)
[2018-12-11 06:07] LABS: BUN/Creatinine Ratio 24 (6-26); Blood Urea Nitrogen 17 mg/dL (6-20); Calcium 8.8 mg/dL (8.6-10.3); Carbon Dioxide 22 mEq/L (23-29); Chloride 106 mEq/L (98-107); Glucose 169 mg/dL (70-105); Osmolality,Calculated 291 (280-300); Potassium 4.3 mEq/L (3.5-5.1); Sodium 138 mEq/L (136-145); eGFR For African Americans > 60 (> 60); eGFR For Non-African Americans > 60 (> 60)
--- NOTE | 2018-12-11 08:10 | Internal Med Progress Note ---
<GregManpreetAmador A - Last Filed: 12/11/18 14:22> Hospitalist Progress Note - Encounter Date of Encounter: 12/11/18 Time of Encounter: 08:45 - Subjective Interval History: Pt seen and examined at bedside. Pt reports her back feels very sore today. States she does experience discomfort on ambulation or while sitting down on the toilet. She is unsure of whether pain medication is helping. She denies any headaches, fever, chills, chest pain, shortness of breath, abdominal pain, nausea, or vomiting. States she has no urinary symptoms. No BM thus far but is passing gas. - Exam Vitals: Temp Pulse Resp BP Pulse Ox 97.9 F 79 20 111/70 95 12/11/18 06:45 12/11/18 06:45 12/11/18 06:45 12/11/18 06:45 12/11/18 06:45 Exam: Constitutional: Obese female in no acute distress Head: Normocephalic, atraumatic Eyes: PERRL, EOMI, conjunctiva pink, sclera anicteric Neck: Supple, trachea midline Lungs: Clear to auscultation bilaterally. Nonlabored breathing. No wheezes, rales, or rhonchi noted. Cardiac: RRR. +s1+s2 No murmurs, clicks, or rubs noted. GI: Abdomen soft, nontender, obese Extremities: Warm, radial pulses palpable and symmetrical. No cyanosis. Trace pitting edema. Neuro: Alert and oriented 3. No focal deficits. Normal speech. Skin: Warm, dry, and intact. - Assessment and Plan (1) Intractable back pain Current Visit: Yes Status: Acute Assessment and Plan: Patient with history of morbid obesity presents as a transfer from [facility] for surgical management of acute pain of lumbar spine. No red flag symptoms at this time -MRI from [place] on 11/30/18 demonstrated disc sequestration at L4-5 with L5 nerve impingement -Reports no benefit from Tylenol, Naprosyn, fentanyl or lidocaine patches, oxyco done, gabapentin, or PT @[facility] - Underwent Laminectomy of L3-L5 with Dr Licea on 12/10 PLAN: - continue supportive care and pain management - Continue bowel regimen for constipation - Await surgery post-op recs (2) Herniation of left side of L4-L5 intervertebral disc Current Visit: Yes Status: Acute Assessment and Plan: See above (3) DM type 2 (diabetes mellitus, type 2) Current Visit: Yes Status: Chronic Assessment and Plan: Currently home regimen consists of metformin 500 daily Blood glucose is well admitted remain well controlled Continue low-dose sliding scale insulin Continue diabetic diet (4) Morbid obesity Current Visit: Yes Status: Chronic Assessment and Plan: Complicates all aspects of care Chronic issue (5) LES (obstructive sleep apnea) Current Visit: Yes Status: Chronic Assessment and Plan: Patient has history of LES and uses CPAP at home Continue CPAP while sleeping - Time Spent with Patient Total time spent is greater than 50% in coordination of care (as documented) at patient's floor/unit and/or counseling patient: Internal Medicine: Result - Labs CBC & Chem 7: 12/11/18 05:05 12/11/18 05:05 Labs: Short CBC 12/10/18 12/11/18 Range/Units 09:39 05:05 WBC 7.5 11.1 (4.3-11.1) K/mcL Hgb 12.7 12.9 (11.5-15.4) g/dL Hct 39.8 40.5 (35.3-44.9) % Plt Count 220 228 (140-400) K/mcL Neutrophils # 3.5 (1.6-8.9) K/mcL BMP 12/10/18 12/11/18 09:39 05:05 Sodium 143 138 Potassium 3.6 4.3 Chloride 107 106 Carbon Dioxide 27 22 L BUN 21 H 17 Creatinine 0.70 0.72 Glucose 101 169 H Calcium 8.8 8.8 - ABG Interpretation ABG results: PT/INR, D-dimer PT 12.1 Seconds (9.4-12.1) 12/10/18 09:39 - Impressions Impressions Fluoroscopy 12/11/18 00:06 IMPRESSION: Intraprocedural fluoroscopic spot images as above. See separate procedure report for more information. D/ / Emile Steward MD / Emile Steward MD Interpreting Provider: Emile Steward MD Consult Discharge Plan - Plan Referrals: Mansi Reagan, HAND I TUBE BENDER [Primary Care Provider] - Prescriptions: Docusate Sodium [Colace] 100 mg PO BID 5 Days #10 capsule Prescription Printed OxyCODONE Immed Rel [Roxicodone 5 MG] 5 mg PO Q6HR PRN 5 Days #20 tablet PRN Reason: Severe Pain Prescription Printed <ShanaMadelyn Staciesharon - Last Filed: 12/11/18 15:32> Hospitalist Progress Note - Encounter Date of Encounter: 12/11/18 - Exam Vitals: Temp Pulse Resp BP Pulse Ox 98.0 F 102 20 135/77 93 12/11/18 15:02 12/11/18 15:02 12/11/18 15:02 12/11/18 15:02 12/11/18 15:02 - Assessment and Plan (1) Intractable back pain Current Visit: Yes Status: Acute (2) Herniation of left side of L4-L5 intervertebral disc Current Visit: Yes Status: Acute (3) DM type 2 (diabetes mellitus, type 2) Current Visit: Yes Status: Chronic (4) Morbid obesity Current Visit: Yes Status: Chronic (5) LES (obstructive sleep apnea) Current Visit: Yes Status: Chronic - Time Spent with Patient Total time spent is greater than 50% in coordination of care (as documented) at patient's floor/unit and/or counseling patient: Internal Medicine: Result - Labs CBC & Chem 7: 12/11/18 05:05 12/11/18 05:05 Labs: Short CBC 12/11/18 Range/Units 05:05 WBC 11.1 (4.3-11.1) K/mcL Hgb 12.9 (11.5-15.4) g/dL Hct 40.5 (35.3-44.9) % Plt Count 228 (140-400) K/mcL BMP 12/11/18 05:05 Sodium 138 Potassium 4.3 Chloride 106 Carbon Dioxide 22 L BUN 17 Creatinine 0.72 Glucose 169 H Calcium 8.8 - ABG Interpretation ABG results: PT/INR, D-dimer PT 12.1 Seconds (9.4-12.1) 12/10/18 09:39 - Impressions Impressions Fluoroscopy 12/11/18 00:06 IMPRESSION: Intraprocedural fluoroscopic spot images as above. See separate procedure report for more information. D/ / Emile Steward MD / Emile Steward MD Interpreting Provider: Emile Steward MD - Attending Attestation I saw evaluated and examined this patient and reviewed objective data including labs and my medical decision-making was reviewed with the Resident Physician/Medical Student. I agree with the documented findings, disposition and treatment plan as described except to any changes set forth below. We independently had [id number] contact with the patient. ___ <Amador Garza - Last Filed: 12/11/18 14:22> (3) DM type 2 (diabetes mellitus, type 2) Qualifiers: Diabetes mellitus senior care insulin use: without senior care use Diabetes mellitus complication status: without complication Qualified Code(s): E11.9 - Type 2 diabetes mellitus without complications <Eamon Saldana - Last Filed: 12/11/18 15:32> (3) DM type 2 (diabetes mellitus, type 2) Qualifiers: Diabetes mellitus ferry terminal supervisor insulin use: without senior care use Diabetes mellitus complication status: without complication Qualified Code(s): E11.9 - Type 2 diabetes mellitus without complications
--- NOTE | 2018-12-11 12:09 | Orthopedics Progress Note ---
Date of Encounter: 12/11/18 Time of Encounter: 12:25 - Assessment and Plan (1) Lumbar stenosis Status: Chronic Qualifiers: Neurogenic claudication status: unspecified Qualified Code(s): M48.061 - Spinal stenosis, lumbar region without neurogenic claudication (2) Lumbar radiculopathy Status: Chronic (3) Status post lumbar laminectomy Status: Acute Subjective Principal diagnosis: Lumbar stenosis, lumbar radiculopathy, left leg weakness Interval history: POD#1 s/p Laminectomy L3-L5 [Lumbar stenosis, lumbar radiculopathy] 12/10/18 Patient seen at bedside. Niece at bedside. A&Ox3 Dressing and incision c/d/i No calf tenderness, erythema, or warmth. Neurovascularly intact b/l LE. Labwork, vitals, and medications reviewed. Pain control: Adequate Participating in therapy. All questions and concerns addressed. Educated on use of incentive spirometer, ambulation, and hydration. Patient educated on post-operative restrictions and care. Addressed: restrictions reviewed including no bending, twisting, lifting at waist. No lifting greater than 10 lbs. Frequent assisted ambulation. Change dressing daily. Keep incision clean and dry. Do not apply and creams, salves, or lotions to incision. Keep outpatient follow up as scheduled. Patient course and disposition discussed with Dr. Licea Continue with postoperative care. Objective Vital signs: Vital Signs Temp Pulse Resp BP Pulse Ox 12/11/18 11:14 97.9 F 73 20 115/70 94 12/11/18 06:45 97.9 F 79 20 111/70 95 12/11/18 03:14 98.5 F 82 18 106/67 93 12/11/18 00:40 91 16 127/77 93 12/11/18 00:10 84 16 126/76 93 12/10/18 23:52 88 16 135/82 95 12/10/18 23:51 94 12/10/18 23:37 98.3 F 92 16 137/87 92 12/10/18 23:30 97.8 F 99 10 151/93 93 12/10/18 23:20 92 10 142/82 95 12/10/18 23:10 98.1 F 93 12 145/90 95 12/10/18 23:00 98 12 159/77 97 12/10/18 22:50 100 12 171/85 99 12/10/18 22:40 97.7 F 103 14 147/99 99 12/10/18 18:50 98.4 F 66 16 114/68 93 Intake and Output 12/10/18 12/11/18 12/11/18 23:59 07:59 15:59 Intake Total 0 / 0 0 / 240 240 / 240 Output Total 20 870 600 / 600 Balance -20 / -870 -600 / -360 240 / -360 Intake: Oral 0 / 0 0 / 240 240 / 240 Output: Urine 0 / 850 600 / 600 Estimated Blood Loss Other: Meal Breakfast Percent of Meal Consumed 100% Weight 126.8 kg Blood Glucose* 113 133 116 Patient Weight 12/11/18 23:59 Weight 126.8 kg - Labs CBC & BMP: 12/12/18 06:17 12/12/18 06:17 Labs: Abnormal lab results MCV 100.2 fL (83.0-100.0) H 12/08/18 04:52 MPV 8.7 fL (9.4-12.4) L 12/11/18 05:05 Chloride 109 mEq/L (98-107) H 12/07/18 11:13 Carbon Dioxide 22 mEq/L (23-29) L 12/11/18 05:05 BUN 21 mg/dL (6-20) H 12/10/18 09:39 BUN/Creatinine Ratio 30 (6-26) H 12/10/18 09:39 Glucose 169 mg/dL (70-105) H 12/11/18 05:05 POC Glucose 103 mg/dL (70-99) H 12/10/18 07:35 Ur Specific [place] 1.026 (1.010-1.025) H 12/08/18 21:45 Consult Discharge Plan - Plan Referrals: Mansi Reagan, BLASTING GANG MINER [Primary Care Provider] - Prescriptions: Docusate Sodium [Colace] 100 mg PO BID 5 Days #10 capsule Prescription Printed Sennosides/Docusate Sodium [Senna Plus] 1 each PO DAILY PRN 7 Days #7 tablet PRN Reason: Constipation Transmission Status: Received by [id number]
[2018-12-11] MEDS: Ondansetron 4 MG/2 ML VIAL IVP PRN (17:24)
[2018-12-12] MEDS: *HR* OxyCODONE Immed Rel 5 MG TABLET PO PRN ×3 (01:31→16:55)
[2018-12-12] MEDS: Ondansetron 4 MG/2 ML VIAL IVP PRN (01:38)
[2018-12-12] MEDS: *HR* HYDROcodone/Acet 5/325 mg TABLET PO PRN ×2 (03:00→09:45)
[2018-12-12 06:52] LABS: Hemoglobin 12.1 g/dL (11.5-15.4); Mean Corpuscular HGB Conc 31.8 g/dL (31.6-35.5); Mean Corpuscular Hemoglobin 31.1 pg (28.0-33.3); Mean Corpuscular Volume 97.7 fL (83.0-100.0); Mean Platelet Volume 8.6 fL (9.4-12.4); Platelet Count 228 K/mcL (140-400); Red Blood Count 3.89 M/mcL (3.82-4.97); White Blood Count 9.6 K/mcL (4.3-11.1)
[2018-12-12 07:16] LABS: BUN/Creatinine Ratio 22 (6-26); Blood Urea Nitrogen 15 mg/dL (6-20); Calcium 8.7 mg/dL (8.6-10.3); Carbon Dioxide 26 mEq/L (23-29); Chloride 104 mEq/L (98-107); Glucose 132 mg/dL (70-105); Osmolality,Calculated 291 (280-300); Potassium 4.1 mEq/L (3.5-5.1); Sodium 139 mEq/L (136-145); eGFR For African Americans > 60 (> 60); eGFR For Non-African Americans > 60 (> 60)
--- NOTE | 2018-12-12 08:38 | Orthopedics Progress Note ---
Date of Encounter: 12/12/18 Time of Encounter: 09:00 - Assessment and Plan (1) Intractable back pain Status: Resolved (2) Status post lumbar laminectomy Status: Acute (3) Left leg weakness Status: Chronic (4) Lumbar radiculopathy Status: Chronic (5) Lumbar stenosis Status: Chronic Qualifiers: Neurogenic claudication status: unspecified Qualified Code(s): M48.061 - Spinal stenosis, lumbar region without neurogenic claudication Subjective Principal diagnosis: Lumbar stenosis, lumbar radiculopathy, left leg weakness Interval history: s/p Laminectomy L3-L5 [Lumbar stenosis, lumbar radiculopathy] 12/10/18 Patient seen at bedside. Niece at bedside. A&Ox3 Dressing and incision c/d/i No calf tenderness, erythema, or warmth. Neurovascularly intact b/l LE. Labwork, vitals, and medications reviewed. Pain control: Adequate Participating in therapy. All questions and concerns addressed. Educated on use of incentive spirometer, ambulation, and hydration. Patient educated on post-operative restrictions and care. Addressed: restrictions reviewed including no bending, twisting, lifting at waist. No lifting greater than 10 lbs. Frequent assisted ambulation. Change dressing daily. Keep incision clean and dry. Do not apply and creams, salves, or lotions to incision. Keep outpatient follow up as scheduled. Patient course and disposition discussed with Dr. Licea Per report, patient will discharge to rehab today. Objective Vital signs: Vital Signs Temp Pulse Resp BP Pulse Ox 12/12/18 03:27 98.7 F 81 16 116/72 94 12/11/18 23:05 99.0 F 77 16 119/68 95 12/11/18 19:29 98.3 F 86 16 122/78 94 12/11/18 15:02 98.0 F 102 20 135/77 93 12/11/18 11:14 97.9 F 73 20 115/70 94 Intake and Output 12/11/18 12/12/18 12/12/18 23:59 07:59 15:59 Other: # Voids 1 Weight 127 kg Blood Glucose* 141 129 Patient Weight 12/12/18 23:59 Weight 127 kg - Labs CBC & BMP: 12/12/18 06:17 12/12/18 06:17 Labs: Abnormal lab results MCV 100.2 fL (83.0-100.0) H 12/08/18 04:52 MPV 8.6 fL (9.4-12.4) L 12/12/18 06:17 Chloride 109 mEq/L (98-107) H 12/07/18 11:13 Carbon Dioxide 22 mEq/L (23-29) L 12/11/18 05:05 BUN 21 mg/dL (6-20) H 12/10/18 09:39 BUN/Creatinine Ratio 30 (6-26) H 12/10/18 09:39 Glucose 132 mg/dL (70-105) H 12/12/18 06:17 POC Glucose 141 mg/dL (70-99) H 12/11/18 20:29 Ur Specific Harshaw 1.026 (1.010-1.025) H 12/08/18 21:45 Consult Discharge Plan - Plan Referrals: Mansi Reagan, HARNESS FITTER [Primary Care Provider] - Prescriptions: Docusate Sodium [Colace] 100 mg PO BID 5 Days #10 capsule Prescription Printed Sennosides/Docusate Sodium [Senna Plus] 1 each PO DAILY PRN 7 Days #7 tablet PRN Reason: Constipation Transmission Status: Received by [id number]
--- NOTE | 2018-12-12 09:39 | Internal Med Progress Note ---
Hospitalist Progress Note - Encounter Date of Encounter: 12/12/18 - Exam Vitals: Temp Pulse Resp BP Pulse Ox 98.4 F 89 16 152/72 96 12/12/18 08:30 12/12/18 08:30 12/12/18 08:30 12/12/18 08:30 12/12/18 08:30 - Time Spent with Patient Total time spent is greater than 50% in coordination of care (as documented) at patient's floor/unit and/or counseling patient: Internal Medicine: Result - Labs CBC & Chem 7: 12/12/18 06:17 12/12/18 06:17 Labs: Short CBC 12/12/18 Range/Units 06:17 WBC 9.6 (4.3-11.1) K/mcL Hgb 12.1 (11.5-15.4) g/dL Hct 38.0 (35.3-44.9) % Plt Count 228 (140-400) K/mcL BMP 12/12/18 06:17 Sodium 139 Potassium 4.1 Chloride 104 Carbon Dioxide 26 BUN 15 Creatinine 0.67 Glucose 132 H Calcium 8.7 - ABG Interpretation ABG results: PT/INR, D-dimer PT 12.1 Seconds (9.4-12.1) 12/10/18 09:39 Consult Discharge Plan - Plan Referrals: Mansi Reagan, SHEET PILE HAMMER OPERATOR [Primary Care Provider] - Prescriptions: Docusate Sodium [Colace] 100 mg PO BID 5 Days #10 capsule Prescription Printed OxyCODONE Immed Rel [Roxicodone 5 MG] 5 mg PO Q6HR PRN 5 Days #20 tablet PRN Reason: Severe Pain Prescription Printed
[2018-12-12 11:55] VITALS: BP 147/81
--- NOTE | 2018-12-12 13:45 | Discharge Summary ---
<Marah Michaud I - Last Filed: 12/12/18 13:40> - NOTES TO OUTPATIENT PROVIDER Notes to Outpatient Provider: Patient with history of morbid obesity presents as a transfer from [facility] for surgical management of acute pain of lumbar spine. MRI with disc sequestration at L4-5 with L5 nerve impingement . Underwent Laminectomy of L3-L5 with Dr Licea on 12/10 . Orders not resulted at time of discharge: Pending orders 12/10/18 22:12 Surgical Pathology [PTH] Routine Date of Encounter: 12/12/18 Time of Encounter: :20 - Discharge Diagnosis (1) Intractable back pain Priority: Primary Status: Acute (2) Left leg weakness Priority: Secondary Status: Chronic Hospital course: Mr. Carcamo a 58-year-old woman whose had a 10 day history of severe predominantly left lower extremity radicular symptoms associated with weakness in the left lower extremity. She has been in [place] stepdown unit for approximately 5 days before she was referred to the [facility]. She was in intractable pain rating it a 9 on a pain scale and noted to have significant weakness in the left lower extremity. She was admitted for definitive management, pain control, and medical optimization prior to surgery. MRI of the lumbar spine reveals severe stenosis distal to the L3-4 extending through the L4-5 interspace. There is multilevel degenerative changes and disc desiccation. The stenosis is multifactorial but in part due to a large disc extrusion at L4-5 with proximal migration of the fragment.Underwent Laminectomy of L3-L5 with Dr Licea on 12/10 . She is currently stable . She denies any headaches, fever, chills, chest pain, shortness of breath, abdominal pain, nausea, or vomiting. States she has no urinary symptoms. No BM thus far but is passing gas. Patient agreeable to return to [facility] [place] [facility] rehab . - Time Spent with Patient Total time spent providing and/or coordinating discharge services: - Discharge Medications Prescriptions: New Docusate Sodium [Colace] 100 mg PO BID 5 Days #10 capsule OxyCODONE Immed Rel [Roxicodone 5 MG] 5 mg PO Q6HR PRN 5 Days #20 tablet PRN Reason: Severe Pain Sennosides/Docusate Sodium [Senna Plus] 1 each PO DAILY PRN 7 Days #7 tablet PRN Reason: Constipation Continued Topiramate 100 mg PO DAILY Multivitamin [One Daily Multivitamin] 1 tab PO DAILY FentaNYL PATCH [Duragesic] 75 mcg TD Q72H Levothyroxine [Synthroid] 150 mcg PO QAM Armodafinil [Nuvigil] 250 mg PO DAILY Aspirin [Lo-Dose Aspirin EC] 81 mg PO DAILY Naratriptan HCl [Amerge] 2.5 mg PO PRN PRN PRN Reason: headache Methyl Salicylate/Menthol [Bengay] 1 appl TP DAILY tube metFORMIN [Glucophage] 500 mg PO 0800 tablet Lidocaine Patch [Lidoderm 5% patch] 1 each TP DAILY adh..patch Enoxaparin [Lovenox] 40 mg SQ 0600 syringe Naproxen [Naprosyn] 500 mg PO BIDWM tablet Gabapentin [Neurontin] 300 mg PO BID capsule OxyCODONE/APAP 10/325 [Percocet 10/325 MG] 1 each PO Q4HR PRN 12 Days tablet PRN Reason: Pain Methocarbamol [Robaxin] 500 mg PO Q8HR tablet OXcarbazepine [Trileptal] 600 mg PO BID tablet Acetaminophen [Tylenol] 1,000 mg PO Q8H tablet Ondansetron ODT [Zofran ODT] 4 mg SL Q4HR PRN tab.rapdis PRN Reason: Nausea And Vomiting Home Medications: Levothyroxine [Synthroid] 150 mcg PO QAM 05/10/15 [History] Armodafinil [Nuvigil] 250 mg PO DAILY 05/24/15 [History] Multivitamin [One Daily Multivitamin] 1 tab PO DAILY 05/14/18 [History] Topiramate 100 mg PO DAILY 05/14/18 [History] Aspirin [Lo-Dose Aspirin EC] 81 mg PO DAILY 11/30/18 [History] Naratriptan HCl [Amerge] 2.5 mg PO PRN PRN 12/01/18 [History] Acetaminophen [Tylenol] 1,000 mg PO Q8H tablet 12/04/18 [Rx] Enoxaparin [Lovenox] 40 mg SQ 0600 syringe 12/04/18 [Rx] Gabapentin [Neurontin] 300 mg PO BID capsule 12/04/18 [Rx] Lidocaine Patch [Lidoderm 5% patch] 1 each TP DAILY adh..patch 12/04/18 [Rx] Methocarbamol [Robaxin] 500 mg PO Q8HR tablet 12/04/18 [Rx] Methyl Salicylate/Menthol [Bengay] 1 appl TP DAILY tube 12/04/18 [Rx] Naproxen [Naprosyn] 500 mg PO BIDWM tablet 12/04/18 [Rx] OXcarbazepine [Trileptal] 600 mg PO BID tablet 12/04/18 [Rx] Ondansetron ODT [Zofran ODT] 4 mg SL Q4HR PRN tab.rapdis 12/04/18 [Rx] OxyCODONE/APAP 10/325 [Percocet 10/325 MG] 1 each PO Q4HR PRN 12 Days tablet 12/04/18 [Rx] metFORMIN [Glucophage] 500 mg PO 0800 tablet 12/04/18 [Rx] FentaNYL PATCH [Duragesic] 75 mcg TD Q72H 12/07/18 [History] Docusate Sodium [Colace] 100 mg PO BID 5 Days #10 capsule 12/11/18 [Rx] OxyCODONE Immed Rel [Roxicodone 5 MG] 5 mg PO Q6HR PRN 5 Days #20 tablet 12/11/18 [Rx] Sennosides/Docusate Sodium [Senna Plus] 1 each PO DAILY PRN 7 Days #7 tablet 12/12/18 [Rx] Allergies/Adverse Reactions: Allergy/AdvReac Type Severity Reaction Status Date / Time Amoxicillin [From Augmentin] AdvReac Hives Verified 12/07/18 15:25 clavulanic acid AdvReac Hives Verified 12/07/18 15:25 [From Augmentin] morphine AdvReac Confusion Verified 12/07/18 15:25 Date of admission: 12/08/18 13:25 Primary care physician: Mansi Reagan CNP Consults: 12/07/18 10:56 Consult to Orthopedic Surgery [CONS] Stat Consulting Provider: Ike Licea Jr Reason for Consult: L4-5 disc protrusion with L5 nerve impingement Time Notified: 10:56 Call Completed: Yes 12/10/18 23:29 Consult to Nurse Navigator [CONS] Routine Comment: spine navigator Consult to Occupational Therapy [CONS] Routine Comment: Evaluate, develop and implement POC Reason for Consult: Postoperative rehabilitation Does patient have active BEDREST order?: No Is patient medically & hemodynamically stable?: Yes Patient assessed for mobility or mobilized this visit?: No Consult to Physical Therapy [CONS] Routine Comment: Evaluate, develop and implement POC Reason for Consult: Postoperative rehabilitation Does patient have active BEDREST order?: No Is patient medically & hemodynamically stable?: Yes Patient assessed for mobility or mobilized this visit?: No Consult to Compliance Analyst [CONS] Routine Reason for SW Consult: Postoperative rehabilitation - Constitutional Vitals: Temp Pulse Resp BP Pulse Ox 98.2 F 93 16 147/81 96 12/12/18 10:00 12/12/18 10:00 12/12/18 10:00 12/12/18 10:00 12/12/18 10:00 Exam: Constitutional: Obese female in no acute distress Head: Normocephalic, atraumatic Eyes: PERRL, EOMI, conjunctiva pink, sclera anicteric Neck: Supple, trachea midline Lungs: Clear to auscultation bilaterally. Nonlabored breathing. No wheezes, rales, or rhonchi noted. Cardiac: RRR. +s1+s2 No murmurs, clicks, or rubs noted. GI: Abdomen soft, nontender, obese Extremities: Warm, radial pulses palpable and symmetrical. No cyanosis. Trace pitting edema. Neuro: Alert and oriented 3. No focal deficits. Normal speech. Skin: Warm, dry, and intact - Patient Status Disposition: Transfer Inpatient Rehab Fac Condition: Fair Functional capacity at discharge: uses cane/walker Overall status at discharge: patient is progressing back to baseline - Discharge Instructions Follow Up With: Mansi Reagan, RESEARCH DAIRY FARM SUPERVISOR [Primary Care Provider] - - Diet and Activity Activity: as per physical therapy Diet: diabetic diet <Chidi Moncada - Last Filed: 12/12/18 14:06> Orders not resulted at time of discharge: Pending orders 12/10/18 22:12 Surgical Pathology [PTH] Routine Date of Encounter: 12/12/18 Time of Encounter: 09:55 - Discharge Diagnosis (1) Intractable back pain Status: Acute (2) Herniation of left side of L4-L5 intervertebral disc Status: Acute (3) DM type 2 (diabetes mellitus, type 2) Status: Chronic Qualifiers: Diabetes mellitus long-term insulin use: without terminal press operator use Diabetes mellitus complication status: without complication Qualified Code(s): E11.9 - Type 2 diabetes mellitus without complications (4) Morbid obesity Status: Chronic (5) LES (obstructive sleep apnea) Status: Chronic Hospital course: Ms. Marte is a 58 year old female - Time Spent with Patient Total time spent providing and/or coordinating discharge services: Date of admission: 12/08/18 13:25 Primary care physician: Mansi Reagan CNP Consults: 12/07/18 10:56 Consult to Orthopedic Surgery [CONS] Stat Consulting Provider: Ike Licea Jr Reason for Consult: L4-5 disc protrusion with L5 nerve impingement Time Notified: 10:56 Call Completed: Yes 12/10/18 23:29 Consult to Nurse Navigator [CONS] Routine Comment: spine navigator Consult to Occupational Therapy [CONS] Routine Comment: Evaluate, develop and implement POC Reason for Consult: Postoperative rehabilitation Does patient have active BEDREST order?: No Is patient medically & hemodynamically stable?: Yes Patient assessed for mobility or mobilized this visit?: No Consult to Physical Therapy [CONS] Routine Comment: Evaluate, develop and implement POC Reason for Consult: Postoperative rehabilitation Does patient have active BEDREST order?: No Is patient medically & hemodynamically stable?: Yes Patient assessed for mobility or mobilized this visit?: No Consult to Compliance Analyst [CONS] Routine Reason for SW Consult: Postoperative rehabilitation - Constitutional Vitals: Temp Pulse Resp BP Pulse Ox 98.2 F 93 16 147/81 96 12/12/18 10:00 12/12/18 10:00 12/12/18 10:00 12/12/18 10:00 12/12/18 10:00 - Attending Attestation I saw evaluated and examined this patient and reviewed objective data including labs and my medical decision-making was reviewed with the Resident Physician, Marah Michaud. I agree with the documented findings, disposition and discharge plan as described except to any changes set forth below. We independently had [id number] contact with the patient. Patient with history of morbid obesity, diabetes mellitus type 2, peripheral neuropathy was hospitalized here with acute onset pain in her lumbar spine along with weakness in her left lower extremity. She underwent an MRI here which showed disc sequestration at L4-L5 with L5 nerve impingement. As such she was referred to spinal surgeon who admitted her here for laminectomy. In the interim, she was treated with steroids, gabapentin and pain medications. Patient underwent this procedure on 12/10. She has been recovering well since then. She is being referred to skilled rehabilitation for placement and will be discharged [facility] [place] inpatient rehabilitation today. Time spent on discharge: 5 min
--- NOTE | 2018-12-12 13:59 | Physician Discharge Referral ---
ExtendedCare Referral Info Transfer To: rehab Provider in Charge after Transfer: PCP - Diagnosis (1) Intractable back pain Status: Acute (2) Left leg weakness Priority: Secondary Status: Chronic - Transfer Medications Prescriptions: Docusate Sodium [Colace] 100 mg PO BID 5 Days #10 capsule Prescription Printed OxyCODONE Immed Rel [Roxicodone 5 MG] 5 mg PO Q6HR PRN 5 Days #20 tablet PRN Reason: Severe Pain Prescription Printed Sennosides/Docusate Sodium [Senna Plus] 1 each PO DAILY PRN 7 Days #7 tablet PRN Reason: Constipation Transmission Status: Pending to [phone] Home Medications: Levothyroxine [Synthroid] 150 mcg PO QAM 05/10/15 [History] Armodafinil [Nuvigil] 250 mg PO DAILY 05/24/15 [History] Multivitamin [One Daily Multivitamin] 1 tab PO DAILY 05/14/18 [History] Topiramate 100 mg PO DAILY 05/14/18 [History] Aspirin [Lo-Dose Aspirin EC] 81 mg PO DAILY 11/30/18 [History] Naratriptan HCl [Amerge] 2.5 mg PO PRN PRN 12/01/18 [History] Acetaminophen [Tylenol] 1,000 mg PO Q8H tablet 12/04/18 [Rx] Enoxaparin [Lovenox] 40 mg SQ 0600 syringe 12/04/18 [Rx] Gabapentin [Neurontin] 300 mg PO BID capsule 12/04/18 [Rx] Lidocaine Patch [Lidoderm 5% patch] 1 each TP DAILY adh..patch 12/04/18 [Rx] Methocarbamol [Robaxin] 500 mg PO Q8HR tablet 12/04/18 [Rx] Methyl Salicylate/Menthol [Bengay] 1 appl TP DAILY tube 12/04/18 [Rx] Naproxen [Naprosyn] 500 mg PO BIDWM tablet 12/04/18 [Rx] OXcarbazepine [Trileptal] 600 mg PO BID tablet 12/04/18 [Rx] Ondansetron ODT [Zofran ODT] 4 mg SL Q4HR PRN tab.rapdis 12/04/18 [Rx] OxyCODONE/APAP 10/325 [Percocet 10/325 MG] 1 each PO Q4HR PRN 12 Days tablet 12/04/18 [Rx] metFORMIN [Glucophage] 500 mg PO 0800 tablet 12/04/18 [Rx] FentaNYL PATCH [Duragesic] 75 mcg TD Q72H 12/07/18 [History] Docusate Sodium [Colace] 100 mg PO BID 5 Days #10 capsule 12/11/18 [Rx] OxyCODONE Immed Rel [Roxicodone 5 MG] 5 mg PO Q6HR PRN 5 Days #20 tablet 12/11/18 [Rx] Sennosides/Docusate Sodium [Senna Plus] 1 each PO DAILY PRN 7 Days #7 tablet 12/12/18 [Rx] Allergies/Adverse Reactions: Allergy/AdvReac Type Severity Reaction Status Date / Time Amoxicillin [From Augmentin] AdvReac Hives Verified 12/07/18 15:25 clavulanic acid AdvReac Hives Verified 12/07/18 15:25 [From Augmentin] morphine AdvReac Confusion Verified 12/07/18 15:25 - Respiratory Orders None Smoking Cessation: Smoking cessation has been advised. For more information, call the [place] Tobacco Quit Line at 5-019-TMFN-NOW. - Ancillary Orders May use pressure relief devices daily prn - Advance Directives Code Status: Full Code - Mobility Orders Ambulate - Rehabiliation Orders Rehab Orders: ROM Exercises, Evaluation for Physical Therapy, Evaluation for Occupational Therapy - Treatments Skin tear care topically daily PRN per policy - Diet Orders No Concentrated Sweets CERTIFICATION: I certify that the transfer of the above named patient to an Extended Care Facility is necessary for the continuing treatment of the diagnosis listed. The above information is true and accurate reflection of patient's current condition. Confidential - Redisclosure prohibited without a patient's written consent.
== END 2018-12-12 17:09 | DRG 519 ==
LOC: 3NENU 10:45 → EMEROOARM 10:45 → SUATTDRO 11:48 → 3NENU 12:35 → SUATTDRO 12-08 13:25
PROVIDERS: ADMIT Internal Medicine; ATTEND Internal Medicine